=== PATIENT | female | born 1965 | race Caucasian/White ===

== ENCOUNTER → 2016-05-13 | Outpatient (CLI) | payer BC ==
--- NOTE | 2016-05-18 08:31 | MM ---
Reason for exam: clinical finding. Indicated problem(s): lump or thickening in the left breast. Physical Findings: Nurse Summary: 2 x 2cm nodule in the left breast upper outer quadrant (nurse ts). MG 3D Diag Mammo W/Cad JACLYN Bilateral CC and MLO view(s) were taken. No prior studies available for comparison. Finding: There is suspicious architectural distortion in the 1 o'clock upper outer quadrant of the left breast, 9cm from the nipple. These results were verbally communicated with the patient and result sheet given to the patient on 05/13/16. ASSESSMENT: Highly suggestive of malignancy, BI-RAD 5 RECOMMENDATION: Surgical consultation and ultrasound core biopsy of the left breast. Called Dr. Meyer with mammographic findings and has scheduled an appointment for the patient for 05/19/16 at 3:[address] Todd. PRELIMINARY REPORT CALLED AND FAXED TO DR. TODD ON 05/18/16 AT 300/TP.
--- NOTE | 2016-05-18 08:34 | USB ---
Reason for exam: clinical finding. Indicated problem(s): lump or thickening in the left breast. US Breast Limited LT Left breast ultrasound demonstrates a 1.1 x 1.1 x 0.7cm oval, cystic lesion at the posterior nipple, a 0.6 x 0.6 x 0.2cm oval, cystic lesion at 11 o'clock, a 0.6 x 0.6 x 0.3cm oval, cystic lesion at 1 o'clock, a 1.0 x 0.6 x 0.3cm irregular, solid, hypoechoic lesion at 1 o'clock and a 0.7 x 0.7 x 0.6cm irregular, cystic lesion at 1 o'clock. These results were verbally communicated with the patient and result sheet given to the patient on 05/13/16. ASSESSMENT: Highly suggestive of malignancy, BI-RAD 5 RECOMMENDATION: Surgical consultation and ultrasound core biopsy of the left breast. (10 o'clock left breast) Called Dr. Meyer with mammographic findings and has scheduled an appointment for the patient for 05/19/16 at 3:[address] Todd. PRELIMINARY REPORT CALLED AND FAXED TO DR. TODD ON 05/18/16 AT 300/TP.
== END | disposition home or self-care (01) ==
LOC: RADMAMWWP 15:34
PROVIDERS: ATTEND Family Medicine
DX: R92.2 Inconclusive mammogram (principal); R92.8 Other abnormal and inconclusive findings on diagnostic imaging of breast
CPT/HCPCS: 76642; G0204; G0279

== ENCOUNTER → 2016-05-22 | Day surgery (SDC) | payer BC ==
[~2016-05-22] MED LIST: ALPRAZolam 0.25 MG TAB ONE; BACITRACIN OINT 1 EACH PACKET TOPICAL ONE; LIDOCAINE 1% INJ 10MG/ML (20 ML MDV) ONE; LIDOCAINE 1%-EPI 1:100,000 20 ML VIAL ONE; SODIUM BICARB 4% 5 ML VIAL (0.48 MEQ/ML) ONE
--- NOTE | 2016-05-22 09:07 | USB ---
EXAMINATION TYPE: US biopsy breast VAD LT, MG diagnostic mammo LT wo CAD DATE OF EXAM: 05/22/2016 8:46 AM CLINICAL HISTORY: 50-year-old female R92.8 Abnormal Mammogram. TECHNIQUE: Ultrasound guided core biopsy of the left breast, 1:00 COMPARISON: 05/13/2016 FINDINGS: The procedure of ultrasound guided core biopsy was explained to the patient. Benefits, alternatives, and risks were discussed. An informed consent was then obtained. Rescanning the biopsy target at the 1:00 position suggests that the area may be larger than initially measured. Current measurements are estimated at 2.4 x 0.9 x 1.1 cm. There is vertical orientation, angular margins, and echogenic halo all of which are suspicious features. The patient was placed in supine positioning for imaging and for the procedure. The overlying skin was prepped and draped in usual sterile fashion. Lidocaine buffered with bicarbonate was used as anesthetic into the skin and subcutaneous tissue up to area of concern in the 1:00 left breast. The deeper anesthesia in and around the biopsy target with a lidocaine and epinephrine. Under ultrasound guidance, a a 13-gauge vacuum-assisted mammotome Elite biopsy gun was used to obtain 5 core samples. Following this, a coil clip was left in lesion. The patient tolerated the procedure well without any immediate complication. The patient was kept in the radiology department for short stay after the procedure and then discharged home in stable condition. Postprocedure mammogram shows biopsy clip at the site of architectural distortion. IMPRESSION: Successful, uncomplicated ultrasound guided core biopsy of very suspicious 1:00 left breast lesion; full pathology results to follow. 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 Recommendation Surgical consult of the left breast. NAREN
== END ==
LOC: RADUSWWP 06:50
PROVIDERS: ATTEND Surgery
DX: D05.12 Intraductal carcinoma in situ of left breast (principal); R92.8 Other abnormal and inconclusive findings on diagnostic imaging of breast
CPT/HCPCS: 88305; 19083; G0206; A4648; J2001

== ENCOUNTER 2016-07-08 07:15 | Observation (INO) | payer BC ==
[~2016-07-08 07:15] MED LIST changes: -ALPRAZolam 0.25 MG TAB ONE; -BACITRACIN OINT 1 EACH PACKET TOPICAL ONE; +DEXAMETHASONE SOD PHOSPHATE 10 MG/ML 1 ML VIAL IV ONE; +HEPARIN SODIUM,PORCINE 5,000 UNIT/ML 1 ML VIAL SQ ONE; -LIDOCAINE 1% INJ 10MG/ML (20 ML MDV) ONE; -LIDOCAINE 1%-EPI 1:100,000 20 ML VIAL ONE; +MIDAZOLAM 2 MG/2 ML VIAL IV PRN; +ONDANSETRON 4 MG/2 ML VIAL IVP ONE; +Pre Op ABX Message 1 EACH MISC MISCELLANE ONE; -SODIUM BICARB 4% 5 ML VIAL (0.48 MEQ/ML) ONE
[2016-07-08] MEDS ORDERED: ALPRAZolam 0.25 MG TAB PO ONE (07:58)
[2016-07-08] MEDS ORDERED: LIDOCAINE 1% 20 ML VIAL (10MG/ML) FOR IV START INTRADERMA ONE (08:15)
[2016-07-08] MEDS: LACTATED RINGERS 1,000 ML IV SCH (08:15)
[2016-07-08] MEDS ORDERED: LIDOCAINE 1% INJ 10MG/ML (20 ML MDV) SQ ONE (08:50)
--- NOTE | 2016-07-08 10:08 | NM ---
EXAMINATION TYPE: NM sentinel node injection DATE OF EXAM: 07/08/2016 9:51 AM COMPARISON: NONE HISTORY: Left breast cancer TECHNIQUE AND FINDINGS: The procedure of sentinel lymph node injection was explained to the patient. The benefits, alternatives, and risks were discussed. An informed consent was then obtained. Overlying skin is cleaned with sterile alcohol. Lidocaine buffered with bicarbonate was used as anes thetic into the skin and subcutaneous tissue surrounding the nipple. Following this, 545 uCi Tc 99m Filtered Sulfur Colloid was injected into 4 equivalent doses at 12, 3, 6, and 9:00 position surroundi ng the left nipple intradermally. The injection sites were massaged by nuclear instructor for 10 minutes after injection. T he patient tolerated the procedure well without any immediate complication. The patient was kept in the radiology department for short stay after the procedure and then taken to surgery for surgical pr ocedure what is presumed intraoperative gamma probe will be used for sentinel lymph node detection. IMPRESSION: Left breast radiotracer injection for sentinel node localization as above.
[2016-07-08] MEDS ORDERED: METHYLENE BLUE 50 MG/10 ML AMPUL MISCELLANE ONE (10:18)
[2016-07-08] MEDS ORDERED: ePHEDrine 50 MG/ML 1 ML AMP ONE (11:07)
[2016-07-08] MEDS ORDERED: SUCCINYLCHOLINE CHLORIDE 100 MG/5 ML SYR IV ONE (11:07)
[2016-07-08] MEDS ORDERED: LIDOCAINE 1% INJ 10MG/ML (20 ML MDV) ONE (11:07)
[2016-07-08] MEDS ORDERED: PROPOFOL 10 MG/ML 20 ML VIAL IV ONE (11:07)
[2016-07-08] MEDS ORDERED: MIDAZOLAM 2 MG/2 ML VIAL ONE (11:07)
[2016-07-08] MEDS ORDERED: fentaNYL (PF) 50 MCG/ML 2 ML AMP ONE (11:07)
[2016-07-08] MEDS ORDERED: SODIUM CHLORIDE 0.9% 100 ML with CLINDAMYCIN 600 MG IV ONE ×2 (11:30)
[2016-07-08] MEDS ORDERED: METHYLENE BLUE 50 MG/10 ML AMPUL INJ ONE (11:45)
[2016-07-08] MEDS ORDERED: LACTATED RINGERS 1,000 ML IV ONE ×3 (11:45→17:20)
[2016-07-08] MEDS ORDERED: BUPIVACAIN-EPI 0.25%-1:200,000 30 ML VIAL SQ ONE ×2 (11:57)
--- NOTE | 2016-07-08 13:28 | MM ---
EXAMINATION TYPE: MG pre op needle loc LT DATE OF EXAM: 07/08/2016 10:09 AM COMPARISON: 05/22/2016 CLINICAL HISTORY: Left breast cancer TECHNIQUE: Needle localization with wire placement and surgical excision of area of concern in the left breast. FINDINGS: The procedure of needle localization with wire placement and than surgical excision was explained to the patient. Benefits, alternatives, and risks were discussed. An informed consent was then obtained. The shortest pathway for procedure was chosen. Shortest pathway was chosen. The overlying skin was prepped and draped in usual sterile fashion. Lidocaine buffered with bicarbonate was used as anesthetic into the skin and subcutaneous tissue up to the level of area of concern. A 7 cm needle was used. It was placed via a lateral approach under mammographic guidance. Subsequent 90 degrees mammogram show the needle to be in satisfactory position relative to the targeted area. At this point, wire was placed and the needle was withdrawn. The wire was fixed to patient's skin. Images were marked for surgeon. The area of concern was bracketed with 2 needle localizations. The patient tolerated the procedure well without any immediate complication. The patient was kept in the radiology department for short stay after the procedure and then taken to surgery for surgical excision. Targeted area of concern and wire are identified in specimen mammogram. The patient was kept in hospital for short stay after the procedure and then discharged home in stable condition. IMPRESSION: Successful, uncomplicated needle localization with wire placement and surgical excision of area of concern in the left breast, full pathology results to follow. Pathology Results: Malignant A. LYMPH NODE, LEFT, SENTINEL NODE BIOPSY: LYMPH NODE POSITIVE FOR METASTASIS. B. LYMPH NODES, LEFT AXILLA, AXILLARY DISSECTION: ONE OF EIGHT LYMPH NODES WITH MICROMETASTASIS. C. 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 LOBULAR NEOPLASIA (ATYPICAL LOBULAR HYPERPLASIA/LOBULAR CARCINOMA IN SITU). FIBROCYSTIC CHANGE (STROMAL FIBROSIS, CYST FORMATION, APOCRINE METAPLASIA, ADENOSIS, FEATURES OF DUCT ECTASIA AND DUCT HYPERPLASIA FOCALLY WITH ATYPIA). FIBROADENOMAS. PSEUDOANGIOMATOUS STROMAL HYPERPLASIA (PASH). Recommendation Surgical consult of the left breast. NAREN
[2016-07-08] MEDS ORDERED: HYDROmorphone 1 MG/ML 1 ML SYRINGE IVP PRN (15:36)
[2016-07-08] MEDS ORDERED: ONDANSETRON 4 MG/2 ML VIAL IVP PRN (15:37)
[2016-07-08 15:55] VITALS: RESP 16
[2016-07-08] MEDS ORDERED: ONDANSETRON 4 MG/2 ML VIAL IVP ONE (16:04)
[2016-07-08] MEDS: HYDROmorphone 1 MG/ML 1 ML SYRINGE IVP PRN ×2 (16:12→16:31)
--- NOTE | 2016-07-08 16:52 | P.OP ---
Date of Procedure: 07/08/16 Preoperative Diagnosis: Left breast cancer- Invasive ductalcancer and DCIS upper outer quadrant at 1 o clock, ER+, DC+, Her 2 lana negative BRCA gene testing negative Postoperative Diagnosis: Same Procedure(s) Performed: Left breast wire localization lumpectomy( using 2 localization wires to bracket the lesion) Left sentinel lymph node biopsy using blue dye and radioactive tracer Left axillary lymph node dissection ( Level1 and 2) Implantation of biosorb marker left breast Implants: Biosorb Anesthesia: BRANDOA, local Surgeon: Kalyn Todd Ceramist #1: Shereen Barillas Estimated Blood Loss (ml): 25 Pathology: other Condition: stable Disposition: PACU Indications for Procedure: 50 years old female presents with left breast cancer in upper outer quadrant. Biopsy showed DCIS as well as invasive cancer, ER positive, DC positive, HER-2/ lana negative. BRCA genetic testing was negative. Informed consent obtained and patient elected to undergo left breast lumpectomy with wire localization with sentinel lymph node biopsy with possible axillary lymph node dissection. The risks, benefits and potential complications including bleeding, infection, lymphedema, positive margins requiring reexcision were discussed. Patient elected to undergo the procedure Operative Findings: 1. The left breast was dense. The palpable mass was bracketed using 2 localization wires 2. The gamma probe detected radioisotope signal/hot spot in the left axilla. The blue sentinel lymph node was identified in the axilla. The sentinel lymph node was positive for malignancy and hence proceeded with axillary lymph node dissection 3. The defect in the breast was closed utilising local tissue transfer technique and a BIOSORB marker was placed Description of Procedure: The patient underwent wire localization (bracketing) of left breast abnormality at 1 o'clock position . Injection of radioisotope was performed in the radiology department. She was brought to the operating room and placed in supine position with both arms out. 6 mL of methylene blue was injected in the subdermal plane at 4 quadrants around the areola and the breast was massaged for 5 minutes . General anesthesia with endotracheal intubation was performed as per anesthesia team. No muscle relaxants were given. Chlorhexidine was used to prep the left breast and left axilla taking care not to dislodge the wires exiting from the left breast. Sterile drapes were applied. A timeout was performed to verify correct patient and correct procedure. Patient was confirmed to receive perioperative IV antibiotics, heparin 5000 units subcutaneous injection for the VTE prophylaxis and bilateral SCDs were placed. A hand-held gamma probe was used to detect signals overlying the breast. Radioisotope signal could be obtained in the axilla at inferior hairline. A 3 cm incision was made below the left axillary hairline and dissection was carried out to identify blue node. The sentinel lymph node was sent for frozen section and was noted to be positive. Hence proceeded with left axillary lymph node dissection. After entering the clavicopectoral fascia, a additional blue node was identified. This node was located deep in the axillary bed. The node was excised in its entirety.All the firofatty axillary contents were removed extending to subclavian vein superiorly, pectoralis major muscle anteriorly , latissmus dorsi muscle posteriorly. Long thoracic nerve and thoracodorsal nerves identified and protected at all times. All left axilla contents sent for pathology. A flat ROBIN drain was left in the axilla and was brought out through a separate stab incision . The resulting cavity was checked for hemostasis. This was closed in layers using 3-0 Vicryl interrupted sutures and 4-0 Monocryl running subcuticular sutures. A 4 cm elliptical skin incision was made in between the two guidewire along the left breast. Superior and inferior skin flaps raised. The wires was delivered into the wound. Dissection was then taken down circumferentially using Bovie electrocautery taking care to include the entire area between the two localizing wires and a 1 cm margin of grossly normal tissue extending deep to the pectoralis muscle fascia. Final post excision measurement of the defect 10 x3.5 x 7 cm . 91 gms of breast tissue removed. The specimen and the localizing wires were removed. Specimen was oriented with colored ink as per protocol . The specimen was sent to radiology which confirmed that the wires and clip were within the excised specimen. Local tissue transfer technique utilized i.e. the remaining of the breast tissue was mobilized in prepectoral plane and subcuticular plane to close the large defect . The cavity was checked for hemostasis. A biosorb was sutured to the cavity using 2-0 Vicryl after measuring using the appropriate sizer . A small round drain was left in the lumpectomy cavity. The cavity was then closed in layers using 3-0 running Quill and 4-0 running Monocryl subcuticular sutures. Dermabond was applied. Sponge, instrument and needle count were correct 2. ROBIN drains were connected to bulb suction. Patient tolerated the procedure well and was taken to postanesthesia care unit in stable condition Final Pathologic Diagnosis A. LYMPH NODE, LEFT, SENTINEL NODE BIOPSY: LYMPH NODE POSITIVE FOR METASTASIS. B. LYMPH NODES, LEFT AXILLA, AXILLARY DISSECTION: ONE OF EIGHT LYMPH NODES WITH MICROMETASTASIS. C. 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 LOBULAR NEOPLASIA (ATYPICAL LOBULAR HYPERPLASIA/LOBULAR CARCINOMA IN SITU). FIBROCYSTIC CHANGE (STROMAL FIBROSIS, CYST FORMATION, APOCRINE METAPLASIA, ADENOSIS, FEATURES OF DUCT ECTASIA AND DUCT HYPERPLASIA FOCALLY WITH ATYPIA). FIBROADENOMAS. PSEUDOANGIOMATOUS STROMAL HYPERPLASIA (PASH). Notes SURGICAL PATHOLOGY CANCER CASE SUMMARY - INVASIVE CARCINOMA OF THE BREAST Specimen Identification Procedure: Excision with image guided localization. Lymph Node Sampling: [place] lymph node and axillary resection. Specimen Laterality: Left. Tumor Size - Size of Largest Invasive Carcinoma: Greatest dimension of largest focus of invasion greater than 1 mm: 21-26 mm, see comment. Histologic Type of Invasive Carcinoma: Invasive mammary carcinoma of no special type (ductal), not otherwise specified. Histologic Grade: [place] Histologic Score Glandular (Acinar)/Tubular Differentiation: 3. Nuclear Pleomorphism: 3. Mitotic Rate: 1. Overall Grade: Grade 2 (score of 7). Tumor Focality: Multiple foci of invasive carcinoma favor at least five foci of invasive carcinoma. Ductal Carcinoma In Situ (DCIS): DCIS is present. Nuclear Grade: III (high). Necrosis: Present, central (expansive "comedo" necrosis). Margins: Invasive carcinoma: Margins uninvolved by invasive carcinoma. Distance from closest margin: Less than 1 mm from the margin inked with black and green ink and less than 1 mm from the margin inked with black ink. See gross description. DCIS: Margins uninvolved by DCIS. Distance from closest margin: Less than 1.5 mm from the margin inked orange, less than 2 mm from the margin inked black, 2 mm from the margin inked yellow and just greater than 2 mm from the margin inked green and black. DCIS is also identified 1 mm from an edge inked green though this may not be the true margin and instead the inner edge of the grossly described invagination of the surface/ the inner aspect of the flap of breast. A duct with atypical ductal hyperplasia is present within 1 mm from the black inked margin. See gross description. Lymph Nodes Total number of nodes examined (sentinel and nonsentinel): 9. Number of sentinel nodes examined: 1. Lymph node involvement Number of lymph nodes with macrometastases (>2mm): 1. Number of lymph nodes with micrometastases (>0.2 mm to 2 mm and/or >200 cells): 1. Number of lymph nodes with isolated tumor cells (less than or equal to 0.2 mm and less than or equal to 200 cells): 0. Size of largest metastatic deposit: 15 mm. Extranodal Extension: Present. Lymph Vascular Invasion: Identified. Pathologic Staging TNM Descriptors: m (multiple foci of invasive carcinoma). Primary Tumor: pT2 (tumor greater than 20 mm but less than or equal to 50 mm in greatest dimension). Regional Lymph Nodes: pN1a (metastasis in 1-3 axillary lymph nodes, at least one metastasis greater than 2 mm).
[2016-07-08] MEDS ORDERED: SODIUM CHLORIDE 0.9% 1,000 ML IV SCH (18:15)
[2016-07-08 18:24] VITALS: BMI 27.7
[2016-07-08] MEDS: HEPARIN SODIUM,PORCINE 5,000 UNIT/ML 1 ML VIAL SQ SCH ×2 (18:39→23:37)
[2016-07-08] MEDS: HYDROcodone/APAP 5-325MG 1 EACH TAB PO PRN (19:41)
[2016-07-08] MEDS ORDERED: SCOPOLAMINE 1.5MG/72HR PATCH TRANSDERM SCH (20:00)
[2016-07-08] MEDS ORDERED: ZOLPIDEM 5 MG TAB PO SCH (21:00)
[2016-07-08] MEDS: DOCUSATE 100 MG CAP PO SCH (23:34)
[2016-07-09] MEDS: LACTATED RINGERS 1,000 ML IV SCH (04:31)
[2016-07-09] MEDS: HYDROcodone/APAP 5-325MG 1 EACH TAB PO PRN (07:22)
[2016-07-09] MEDS: HEPARIN SODIUM,PORCINE 5,000 UNIT/ML 1 ML VIAL SQ SCH (07:23)
[2016-07-09] MEDS: DOCUSATE 100 MG CAP PO SCH (07:24)
--- NOTE | 2016-07-09 11:36 | P.DS ---
Providers Date of admission: 07/08/16 19:41 Expected date of discharge: 07/09/16 Attending physician: Kalyn Todd Primary care physician: [facility] Course: 50-year-old female who was admitted to undergo a lumpectomy for left breast cancer on the 08 of July. The sentinel lymph node was negative for malignancy. Patient was worked up by mammogram and ultrasound for dense area noted at 1 o'clock position left breast. Patient elected to proceed with a surgical approach patient underwent a the left breast lumpectomy on July [address] todd postop patient stated to surgical pain was controlled patient had 2 Sravan-Post drains in place. Dressing was dry to the left breast area Impression discharge diagnosis Abnormal mammogram for dense area left breast July 08 lumpectomy left breast with sentinel lymph node negative for malignancy The above dictated assessment and findings were discussed with dr todd Impression and the plan of care have been dictated as directed. Xenia Lerner nurse practitioner acting as a scribe for dr todd Plan - Discharge Summary New Discharge Prescriptions: Docusate [Colace] 100 mg PO BID #30 capsule HYDROcodone/APAP 7.5-325MG [[place] 7.5-325] 1 each PO Q4H PRN #30 tab PRN Reason: Pain Discharge Medication List Cholecalciferol [Vitamin D3] 1,000 unit PO DAILY 07/02/16 [History] Ibuprofen [Motrin] 200 mg PO Q6HR PRN 07/02/16 [History] Magnesium Gluconate [Magonate] 500 mg PO DAILY 07/02/16 [History] Docusate [Colace] 100 mg PO BID #30 capsule 07/08/16 [Rx] HYDROcodone/APAP 7.5-325MG [[place] 7.5-325] 1 each PO Q4H PRN #30 tab 07/08/16 [ Rx] Follow up Appointment(s)/Referral(s): Kalyn Todd MD [STAFF PHYSICIAN] - 07/14/16 9:40 am Activity/Diet/Wound Care/Special Instructions: OK to shower . No soaking bath. No heavy lifting more than 10 lbs for 6 weeks post surgery. No driving while taking narcotics for pain. Take Motrin 600 mg po TID after meals if pain is not controlled Use incentive spireometry 10 times an hour while awake Regular diet Empty ROBIN drain every 12 hours and record output Discharge Disposition: HOME SELF-CARE
[2016-07-09 15:06] VITALS: BP 114/71; PULSE 80; TEMP 97.8
== END 2016-07-09 18:05 | disposition home or self-care (01) ==
LOC: OR 07:15 → 3SUR 15:08 → OR 19:40 → 3SUR 19:41
PROVIDERS: ADMIT Surgery; ATTEND Surgery
DX: C50.412 Malignant neoplasm of upper-outer quadrant of left female breast (principal); C77.3 Secondary and unspecified malignant neoplasm of axilla and upper limb lymph nodes; Z88.0 Allergy status to penicillin; Z87.891 Personal history of nicotine dependence; G43.909 Migraine, unspecified, not intractable, without status migrainosus; Z88.8 Allergy status to other drugs, medicaments and biological substances; Z79.1 Long term (current) use of non-steroidal anti-inflammatories (NSAID)
CPT/HCPCS: 19301; 38525; 96376; 96374; 96375; 81025; 88342; 88331; 88307; 76098; 19281; 38792; G0378 ×2; C1713; A9541; J2250; J1644 ×2; J1100; J2405; J2001; J3010; J1170; J0330; J2704; Q9968

== ENCOUNTER → 2016-10-01 | Outpatient (CLI) | payer BC ==
[2016-10-01 16:16] LABS: Basophils % (A) 1 %; CH 32.7; CHCM 36.1; Eosinophils # (A) 0.1 k/uL (0-0.7); Eosinophils % (A) 2 %; HCT 39.3 % (34.0-46.0); HDW 3.02; HGB 14.1 gm/dL (11.4-16.0); Luc # (Auto) 0.12; Luc % (Auto) 2; Lymphocytes % (A) 21 %; MCH 32.6 pg (25.0-35.0); MCHC 35.8 g/dL (31.0-37.0); MCV 91.1 fL (80.0-100.0); Mean Platelet Volume 7.2; Monocytes # (A) 0.4 k/uL (0-1.0); Monocytes % (A) 7 %; Neutrophils # (A) 3.4 k/uL (1.3-7.7); Neutrophils % (A) 68 %; RBC 4.31 m/uL (3.80-5.40); RDW 13.4 % (11.5-15.5); WBC (Perox) 5.55
[2016-10-01 16:30] LABS: ALT 32 U/L (9-52); AST 19 U/L (14-36); Alkaline Phosphatase 52 U/L (38-126); Anion Gap 7 mmol/L; Blood Urea Nitrogen 8 mg/dL (7-17); Calcium 9.3 mg/dL (8.4-10.2); Carbon Dioxide 29 mmol/L (22-30); Chloride 105 mmol/L (98-107); Glucose 91 mg/dL (74-99); Non-African American GFR(MDRD) >60 (>60 ml/min/1.73 sqM); Potassium 4.4 mmol/L (3.5-5.1); Sodium 141 mmol/L (137-145); Total Bilirubin 0.7 mg/dL (0.2-1.3); Total Protein 7.1 g/dL (6.3-8.2)
== END | disposition home or self-care (01) ==
LOC: LABWHC1 15:45
PROVIDERS: ATTEND Radiology Radiation Oncology
DX: C50.412 Malignant neoplasm of upper-outer quadrant of left female breast (principal); Z17.0 Estrogen receptor positive status [ER+]
CPT/HCPCS: 36415; 80053; 82306; 84443; 85025

== ENCOUNTER → 2017-05-14 | Outpatient (CLI) | payer BC ==
--- NOTE | 2017-05-14 11:16 | MM ---
Reason for exam: additional evaluation requested from prior study. Last mammogram was performed 1 year ago. History: Patient is postmenopausal and has history of breast cancer at age 50. Malignant MG pre op needle loc LT of the left breast, July 08, 2016. Lumpectomy of the left breast, July 08, 2016. Malignant US biopsy breast VAD LT of the left breast, May 22, 2016. Radiation therapy of the left breast, 2017. Physical Findings: Nurse did not find any significant physical abnormalities on exam. MG 3D Diag Mammo W/Cad JACLYN Bilateral CC and MLO view(s) were taken. Prior study comparison: May 22, 2016, left breast MG diagnostic mammo LT wo CAD. May 13, 2016, bilateral MG 3d diag mammo w/cad JACLYN. The breast tissue is heterogeneously dense. This may lower the sensitivity of mammography. Finding: There are new indeterminate cluster of microcalcifications in the right breast 7.5cm from the nipple for which a biopsy is recommended consistent with posterior group stable since 2010. These results were verbally communicated with the patient and result sheet given to the patient on 05/14/17. ASSESSMENT: Suspicious, BI-RAD 4 RECOMMENDATION: Stereotactic core biopsy of the right breast. Called Dr. Gonzalez with mammographic findings and has scheduled an appointment for the patient for 05/28/17 at 10:[address] Badillo. PRELIMINARY REPORT CALLED AND FAXED TO DR. BADILLO ON 05/14/17.
== END | disposition home or self-care (01) ==
LOC: RADMAMWWP 09:57
PROVIDERS: ATTEND Radiology Radiation Oncology
DX: Z08 Encounter for follow-up examination after completed treatment for malignant neoplasm (principal); Z85.3 Personal history of malignant neoplasm of breast
CPT/HCPCS: 77066; G0279

== ENCOUNTER → 2017-06-01 | Outpatient (CLI) | payer BC ==
--- NOTE | 2017-06-02 17:59 | BD ---
EXAMINATION TYPE: MG DEXA axial skeleton. DATE OF EXAM: 06/01/2017 COMPARISON: NONE CLINICAL HISTORY: post menopausal Height: 5'4 1/2 Weight: 147 FRAX RISK QUESTIONS: Alcohol (3 or more units per day): no Family History (Parent hip fracture): no Glucocorticoids (More than 3mos): no (Ex: prednisone, prednisolone, methylprednisolone, dexamethasone, and hydrocortisone). History of Fracture in Adulthood: no Secondary Osteoporosis: 1. Type 1 Diabetes: no 2. Hyperthyroidism: no 3. Menopause before 45: no 4. Malnutrition: no 5. Chronic liver disease: no Rheumatoid Arthritis: no Current Tobacco Use: no RISK FACTORS HISTORY OF: If Premenopausal, do you have irregular periods: y MEDICATIONS: Additional Medications: tamoxifen, breast cancer 2017 ,crestor, Additional History: breast cancer 2017 EXAM MEASUREMENTS: Bone mineral densitometry was performed using the [employer] System. Bone mineral density as measured about the Lumbar spine is: ----- L1-L4(G/cm2): 1.232 T Score Values are as follows: ----- L2: -0.2 ----- L3: 1.2 ----- L4: 0.4 ----- L1-L4: 0.4 Bone mineral density about the R hip (g/cm2): 0.963 Bone mineral density about the L hip (g/cm2): 1.038 T Score values are as follows: -----R Neck: -0.5 -----L Neck: 0.0 -----R Total: -0.1 -----L Total: -0.1 IMPRESSION: Normal (Values between +1 and -1 indicate normal bone mass). Consider repeating this study in 5 year s or sooner if there is some new clinical indication. NOTE: T-SCORE=SD OF THE YOUNG ADULT MEAN.
== END | disposition home or self-care (01) ==
LOC: RADBDWWP 15:56
PROVIDERS: ATTEND Obstetrics & Gynecology
DX: Z78.0 Asymptomatic menopausal state (principal); Z13.820 Encounter for screening for osteoporosis
CPT/HCPCS: 77080

== ENCOUNTER → 2017-06-10 | Day surgery (SDC) | payer BC ==
[2017-06-10 07:27] VITALS: RESP 16; TEMP 97.8; BMI 25.7
[2017-06-10 08:36] VITALS: BP 111/68; PULSE 71
--- NOTE | 2017-06-10 09:17 | MM ---
EXAMINATION TYPE: MG stereo VAD BX RT DATE OF EXAM: 06/10/2017 COMPARISON: Exams dating back to 09/23/2011 CLINICAL HISTORY: New 3 mm group of calcifications within the upper central right breast for which dedicated guided biopsy was recommended. TECHNIQUE: Stereotactic guided core biopsy of right breast. FINDINGS: The procedure of stereotactic guided core biopsy was explained to the patient. Benefits, alternatives, and risks were discussed. An informed consent was then obtained. Preprocedural timeout was performed. The shortness pathway for biopsy was chosen. Shortness pathway was craniocaudal from above approach. Preprocedural localization images were obtained and a 3 mm group of calcifications within the upper central right breast was demonstrated. Coordinates were calculated. Subsequently 10 cc of lidocaine without epinephrine was utilized to anesthetize the skin and deeper subcutaneous soft tissues. The needle was advanced to the appropriate depth. Prefire images were obtained ensuring appropriate location. Postfire injection of 10 cc of lidocaine with epinephrine was utilized to anesthetize the site of biopsy. Postfire images were obtained to ensure no movement of the calcifications after instillation of additional anesthetic. A vacuum assisted biopsy gun was used to obtain 9 core samples. The patient tolerated the procedure well without any immediate complication. The patient was kept in the radiology department for short stay after the procedure and then discharged home in stable condition. Targeted calcifications are identified in specimen mammogram. Post biopsy mammogram shows the T-shaped biopsy marker to appear in satisfactory position relative to the targeted area of concern on the preprocedure images without migration. IMPRESSION: SUCCESSFUL, UNCOMPLICATED STEREOTACTIC GUIDED CORE BIOPSY OF A NEW INTERMEDIATE SUSPICION A 3 MM GROUP OF CALCULATIONS WITHIN THE UPPER CENTRAL RIGHT BREAST, FULL PATHOLOGY RESULTS TO FOLLOW. Pathology Results: Benign CORE BIOPSY, RIGHT BREAST TISSUE: CYSTIC NON-PROLIFERATIVE CHANGES: DUCT ECTASIA AND LOBULAR DILATION WITH STROMAL HYLANIZATION. MICROCALCIFICATIONS ARE PRESENT. Recommendation Follow up mammogram of the right breast in 6 months. NAREN
== END ==
LOC: RADMAMWWP 06:56
PROVIDERS: ATTEND Surgery
DX: N60.11 Diffuse cystic mastopathy of right breast (principal); N60.41 Mammary duct ectasia of right breast; R92.0 Mammographic microcalcification found on diagnostic imaging of breast; Z85.3 Personal history of malignant neoplasm of breast
CPT/HCPCS: 88305; 19081; A4648; J2001

== ENCOUNTER → 2017-06-16 | Outpatient (CLI) | payer BC ==
--- NOTE | 2017-06-16 15:35 | CT ---
EXAMINATION TYPE: CT sinus wo con DATE OF EXAM: 06/16/2017 COMPARISON: NONE HISTORY: Sinus trouble CT DLP: 667.[address] of the paranasal sinuses was performed in the axial and coronal planes. Bone and soft tissue settings are submitted. The paranasal sinuses demonstrate normal aeration and development. Very mild mucosal thickening at the base of the right maxillary sinus. No air-fluid levels detected. The osteal meatal units are patent bilaterally. The nasal septum is midline. No bony destructive changes are seen within the field of view. IMPRESSION: Mild mucosal thickening right maxillary sinus.
== END | disposition home or self-care (01) ==
LOC: RADCTMAIN 14:58
PROVIDERS: ATTEND Family Medicine
DX: J34.89 Other specified disorders of nose and nasal sinuses (principal); J32.9 Chronic sinusitis, unspecified
CPT/HCPCS: 70486

== ENCOUNTER → 2017-06-16 | Outpatient (CLI) | payer BC ==
--- NOTE | 2017-06-16 15:38 | CT ---
EXAMINATION TYPE: CT chest w con DATE OF EXAM: 06/16/2017 COMPARISON: NONE HISTORY: Chest pains CT DLP: 150.9 mGycm Automated exposure control for dose reduction was used. CONTRAST: CT scan of the chest is performed with IV Contrast, patient injected with 100 mL of Isovue 300. FINDINGS: LUNGS: Small subpleural nodular density measuring 4 mm right lower lobe image 41. No additional pulmo nary nodular densities seen. No evidence for focal infiltrate or volume loss. Mild subpleural interst itial changes left upper lobe likely post radiation therapy related. There is no pleural effusion or pneumothorax seen. The tracheobronchial tree is patent. MEDIASTINUM: There are no greater than 1 cm hilar or mediastinal lymph nodes. No pericardial effusi on is seen. Thoracic aorta is of normal caliber. The heart is not enlarged. UPPER ABDOMEN: Mild hepatic steatosis. Bilateral extrarenal pelves. OTHER: Lumpectomy changes left breast with associated skin thickening. IMPRESSION: 1. Lumpectomy changes left breast. 2. Mild post radiation therapy changes left upper lobe. 3. Small nonspecific subpleural pulmonary nodule right lower lobe. Consider follow-up study in 6 [facility] hs.
== END | disposition home or self-care (01) ==
LOC: RADCTMAIN 15:00
PROVIDERS: ATTEND Internal Medicine Hematology & Oncology
DX: C50.419 Malignant neoplasm of upper-outer quadrant of unspecified female breast (principal); R91.1 Solitary pulmonary nodule; Z90.12 Acquired absence of left breast and nipple; Z92.3 Personal history of irradiation; Z88.0 Allergy status to penicillin
CPT/HCPCS: 71260; Q9967

== ENCOUNTER → 2017-06-25 | Outpatient (CLI) | payer BC ==
[2017-06-25 11:36] VITALS: BP 110/53; PULSE 63; TEMP 97; BMI 24.4
--- NOTE | 2017-06-25 12:02 | P.GSHP ---
History of Present Illness H&P Date: 06/25/17 Patient is a 51 year old whtie female status post a right breast stero-biopsy on 06/10/17. Her pathology was benign, cystic non-proliferative changes, duct ectasia, and lobular diliation with stromal hylanization. Microcalcification were present. Her bilateral mammogram was on 05/14/17. Nothing of concern noted in the left breast. Patient scheduled for a D&C in the near future for a thick walled uterus. Patient is status post left breast lumpectomy and radiation 2016. No chemotherapy, she is on tamoxiphen. Patient without complaints. No fever or chills. - Constitutional Comment: no night sweats with the tamoxiphen Constitutional: Denies chills, Denies fever - Cardiovascular Cardiovascular: Denies chest pain, Denies shortness of breath - Respiratory Respiratory: Denies cough, Denies 7 - Gastrointestinal Gastrointestinal: Denies abdominal pain, Denies diarrhea, Denies nausea, Denies vomiting - Musculoskeletal Musculoskeletal: Denies myalgias - Integumentary Integumentary: Denies pruritus, Denies rash - Neurological Neurological: Denies numbness, Denies weakness - Psychiatric Psychiatric: Denies anxiety, Denies depression - Endocrine Endocrine: Denies fatigue, Denies weight change - Hematologic/Lymphatic Comment: no blood thinners Past Medical History Past Medical History: Cancer Additional Past Medical History / Comment(s): migraines, breast cancer 2017 History of Any Multi-Drug Resistant Organisms: None Reported Past Surgical History: Tubal Ligation Additional Past Surgical History / Comment(s): left breast biopsy, cyst removed from ovary, surgery on left thumb Past Anesthesia/Blood Transfusion Reactions: No Reported Reaction Smoking Status: Former smoker - Past Family History Mother Family Medical History: Diabetes Mellitus Brother(s) Family Medical History: Diabetes Mellitus Medications and Allergies Home Medications Medication Instructions Recorded Confirmed Type Cholecalciferol [Vitamin D3] 2,000 unit PO DAILY 07/02/16 06/25/17 History Rosuvastatin Calcium [Crestor] 5 mg PO DAILY 06/08/17 06/25/17 History Vitamin E (Dl,Tocopheryl Acet) 400 unit PO DAILY 06/08/17 06/25/17 History [Vitamin E] Tamoxifen [Nolvadex] 20 mg PO DAILY 06/10/17 06/25/17 History Multivitamins, Thera [Multivitamin 2 tab PO DAILY 06/25/17 06/25/17 History (formulary)] Allergies Allergy/AdvReac Type Severity Reaction Status Date / Time Penicillins Allergy Mild Rash/Hives Verified 06/10/17 07:18 Surgical - Exam Vital Signs Temp Pulse BP 97.0 F L 63 110/53 06/25/17 11:33 06/25/17 11:33 06/25/17 11:33 - General well developed, well nourished, no distress - Respiratory normal respiratory effort, clear to auscultation - Cardiovascular Rhythm: regular Heart Sounds: normal: S1, S2 - Abdomen Abdomen: soft, non tender, no guarding, no rigid, no rebound - Integumentary Biopsy site was clean and dry Left breast postoperative changes no masses of concern - Psychiatric oriented to time, oriented to person, oriented to place, speech is normal, memory intact Results Pathology reviewed with the patient Assessment and Plan Assessment: Gabriela/plan: 1. Patient status post stereo biopsy of the right breast pathology benign 2. History of left breast cancer Plan: 1. Repeat mammogram and appointment in 6 months time of the right breast cc: Dr Meyer
== END | disposition home or self-care (01) ==
LOC: WWCWWP 11:20
PROVIDERS: ATTEND Surgery
DX: N60.41 Mammary duct ectasia of right breast (principal); Z53.9 Procedure and treatment not carried out, unspecified reason

== ENCOUNTER → 2017-07-10 | Outpatient (CLI) | payer BC ==
[2017-07-10 10:32] LABS: Basophils % (A) 1 %; Eosinophils # (A) 0.1 k/uL (0-0.7); Eosinophils % (A) 2 %; HCT 38.6 % (34.0-46.0); HGB 13.7 gm/dL (11.4-16.0); Lymphocytes # (A) 1.4 k/uL (1.0-4.8); Lymphocytes % (A) 26 %; MCH 32.6 pg (25.0-35.0); MCHC 35.6 g/dL (31.0-37.0); MCV 91.7 fL (80.0-100.0); Monocytes # (A) 0.3 k/uL (0-1.0); Monocytes % (A) 6 %; Neutrophils # (A) 3.6 k/uL (1.3-7.7); Neutrophils % (A) 65 %; Platelet Count 215 k/uL (150-450); RBC 4.21 m/uL (3.80-5.40); RDW 13.9 % (11.5-15.5); WBC 5.5 k/uL (3.8-10.6)
== END | disposition home or self-care (01) ==
LOC: LABPAT 10:14
PROVIDERS: ATTEND Obstetrics & Gynecology
DX: Z01.812 Encounter for preprocedural laboratory examination (principal)
CPT/HCPCS: 85025

== ENCOUNTER 2017-07-16 05:58 | Day surgery (SDC) | payer BC ==
[2017-07-07 10:16] VITALS: BMI 24.1
--- NOTE | 2017-07-15 21:08 | P.HPOB ---
History of Present Illness H&P Date: 07/15/17 Chief Complaint: Endometrial thickening This is a 51 y.o. female, 2, para 2, who presents for dilatation and curettage with hysteroscopy due to thickened endometrium on pelvic US. She has a history of breast cancer and is on Tamoxifen. Her last menstrual period was October 2016. Her pelvic US showed uterus measuring 9.2 x 5.3 x 4.8 cm with endometrial thickness of 16 mm. Her left ovary showed 2.8 cm cyst. OB Hx: . 2 vaginal deliveries. 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 LMP 10/2016. Review of Systems Constitutional: Denies chills, Denies fever Eyes: denies blurred vision, denies pain Ears, nose, mouth and throat: Denies headache, Denies sore throat Cardiovascular: Denies chest pain, Denies shortness of breath Respiratory: Denies cough Gastrointestinal: Denies abdominal pain, Denies diarrhea, Denies nausea, Denies vomiting Genitourinary: Denies abnormal vaginal bleeding, Denies dysuria, Denies hematuria Menstruation: Reports postmenopausal Musculoskeletal: Denies myalgias Neurological: Denies numbness, Denies weakness Psychiatric: Denies anxiety, Denies depression Past Medical History Past Medical History: Cancer, Hyperlipidemia Additional Past Medical History / Comment(s): Hx migraines, left breast cancer 2016, last radiation treatment 09/2016. History of Any Multi-Drug Resistant Organisms: None Reported Past Surgical History: Breast Surgery (L. Breast lumpectomy), Tubal Ligation Additional Past Surgical History / Comment(s): left breast biopsy, Exploratory laparotomy withcyst removed from ovary, surgery on left thumb. Past Anesthesia/Blood Transfusion Reactions: No Reported Reaction Past Psychological History: No Psychological Hx Reported Smoking Status: Former smoker Past Alcohol Use History: Rare Additional Past Alcohol Use History / Comment(s): quit smoking 2008, smoked for 20 yrs - 1 PPD Past Drug Use History: None Reported - Past Family History Mother Family Medical History: Diabetes Mellitus Medications and Allergies Home Medications Medication Instructions Recorded Confirmed Type Rosuvastatin Calcium [Crestor] 5 mg PO Q48H 06/08/17 07/07/17 History Allergies Allergy/AdvReac Type Severity Reaction Status Date / Time Penicillins Allergy Mild Rash/Hives Verified 07/07/17 10:03 Exam Osteopathic Statement: *. No significant issues noted on an osteopathic structural exam other than those noted in the History and Physical/Consult. HEENT: within normal limits Heart: regular rate and rhythm Lungs: clear to auscultation bilaterally Abdomen: soft, non-tender Pelvic exam: uterus anteverted, mildly tender, with no adnexal masses. Bilateral adnexal tenderness. Extremities: neg. Andrés's. Assessment and Plan (1) Endometrial thickening on ultrasound Status: Acute Code(s): R93.8 - ABNORMAL FINDINGS ON DIAGNOSTIC IMAGING OF BODY STRUCTURES SNOMED Code(s): 681511253 Plan: Proceed with dilatation and curettage with hysteroscopy. I have discussed the risks, benefits, and alternative therapies for the above- mentioned procedure and for both sedation/anesthesia as well as necessary blood products administration, if indicated, as they pertain to this patient. The patient has indicated her understanding and acceptance of the risks and procedures discussed.
[~2017-07-16 05:58] MED LIST changes: -HEPARIN SODIUM,PORCINE 5,000 UNIT/ML 1 ML VIAL SQ ONE; +HYDROmorphone 0.5 MG/0.5 ML SYRINGE IVP PRN; +LACTATED RINGERS 1,000 ML IV SCH; +LIDOCAINE 1% 20 ML VIAL (10MG/ML) FOR IV START INTRADERMA PRN; +SCOPOLAMINE 1.5MG/72HR PATCH TRANSDERM ONE
[2017-07-16] MEDS ORDERED: PROPOFOL 10 MG/ML 20 ML VIAL IV ONE (07:22)
[2017-07-16] MEDS ORDERED: KETOROLAC 30 MG/ML 1 ML VIAL ONE (07:22)
[2017-07-16] MEDS ORDERED: GLYCOPYRROLATE 0.2 MG/ML 2 ML VIAL ONE (07:22)
[2017-07-16] MEDS ORDERED: fentaNYL (PF) 50 MCG/ML 2 ML AMP ONE (07:22)
[2017-07-16] MEDS ORDERED: MIDAZOLAM 2 MG/2 ML VIAL ONE (07:22)
[2017-07-16 08:10] VITALS: TEMP 97.6
[2017-07-16 08:52] VITALS: BP 103/70
[2017-07-16 09:13] VITALS: PULSE 62; RESP 16
--- NOTE | 2017-07-19 11:47 | P.OP ---
Date of Procedure: 07/16/17 Preoperative Diagnosis: Endometrial thickening Postoperative Diagnosis: Same Procedure(s) Performed: Dilation and curettage with hysteroscopy Anesthesia: other (LMA General) Surgeon: Radha Reinoso Estimated Blood Loss (ml): 10 Pathology: other (Endometrial curettings) Condition: stable Disposition: same day Indications for Procedure: This is a 51 y.o. female, 2, para 2, who presents for dilatation and curettage with hysteroscopy due to thickened endometrium on pelvic US. She has a history of breast cancer and is on Tamoxifen. Her last menstrual period was October 2016. Her pelvic US showed uterus measuring 9.2 x 5.3 x 4.8 cm with endometrial thickness of 16 mm. Her left ovary showed 2.8 cm cyst. Of note she did state that about a week ago she did have some vaginal bleeding. Operative Findings: Uterus anteverted, sounded to 8 cm. Upon hysteroscopy, both tubal ostia are visualized. Fairly atrophic pattern noted, sl. thickening on posterior border. No obvious polyps or fibroids. Description of Procedure: The patient was taken to the operating room and placed in the dorsal lithotomy position after general anesthesia was given. The bladder was drained with a catheter and then removed. Pelvic exam was performed under anesthesia. Uterus was found to be anteverted with no adnexal masses. A weighted speculum was placed in the vagina and the anterior lip of the cervix was grasped with a single toothed tenaculum. Uterus was sounded to 8 cm. Cervix was dilated with Post dilators until a hysteroscope could be passed. Hysteroscopy was performed using normal saline. The above noted findings were noted and pictures were taken. Hysteroscope was withdrawn and cervix was dilated further with Post dilators. A polyp forcep was introduced and scant tissue was obtained. Next a medium sized sharp curette was introduced and curettage was performed until a gritty texture was noted. A minimal to moderate amount of tissue was obtained. Single tooth tenaculum was removed and minimal bleeding noted. All other instruments are removed from the vagina. Sponge counts are correct and patient is taken to recovery room in stable condition.
== END 2017-07-16 09:43 | disposition home or self-care (01) ==
LOC: OR 05:58
PROVIDERS: ATTEND Obstetrics & Gynecology
DX: N85.8 Other specified noninflammatory disorders of uterus (principal); N83.202 Unspecified ovarian cyst, left side; Z88.0 Allergy status to penicillin; E78.5 Hyperlipidemia, unspecified; Z79.810 Long term (current) use of selective estrogen receptor modulators (SERMs); Z85.3 Personal history of malignant neoplasm of breast; Z79.899 Other long term (current) drug therapy; Z98.51 Tubal ligation status; Z87.891 Personal history of nicotine dependence; Z83.3 Family history of diabetes mellitus
CPT/HCPCS: 81025; 88305; 58558; J2250; J1100; J2405; J3010; J1885; J2704

== ENCOUNTER → 2017-12-30 | Outpatient (CLI) | payer BC ==
[2017-12-30 15:23] VITALS: BP 117/58; PULSE 66; RESP 16; TEMP 98.4; BMI 27.4
--- NOTE | 2017-12-30 15:44 | P.PN ---
Subjective Progress Note Date: 12/30/17 Principal diagnosis: Shelbie is a 52-year-old white female who is status post a right breast stereo biopsy on [id number]. Her pathology was benign. The patient is also status post a left breast lumpectomy and radiation therapy in 2016. She did not take chemotherapy. She is taking tamoxifen. The patient has no complaints at this time related to either breasts. She did have a repeat right breast mammogram on [id number]. This was a BIRADS 2 no lesions of concern were noted and she is recommended to have a bilateral mammogram in April 2018. Dr. Kramer did identify a spot on her lung and she is having a CAT scan performed next week. Past Surgical History: 1. lumpectomy left breast 2. Ovarian cyst removed on the left 3. Tubal ligation 4. Thumb surgery Past Medical History: none Objective - Vital Signs Vital signs: Vital Signs Temp 98.4 F 12/30/17 15:17 Pulse 66 12/30/17 15:17 Resp 16 12/30/17 15:17 BP 117/58 12/30/17 15:17 Pulse Ox 97 12/30/17 15:17 Intake & Output 12/29/17 12/30/17 12/30/17 18:59 06:59 18:59 Weight 72.575 kg - Constitutional General appearance: Present: average body habitus - EENT Eyes: Present: EOMI ENT: Present: hearing grossly normal - Neck Neck: Present: normal ROM - Respiratory Respiratory: bilateral: CTA - Cardiovascular Rhythm: regular Heart sounds: normal: S1, S2 - Gastrointestinal General gastrointestinal: Present: soft - Integumentary Integumentary Comment(s): breast exam: right breast: Multi-positional exam no dominant masses or nodules of concern Right axilla: No adenopathy of concern Left breast: Multi-positional exam well-healed scar from prior surgery no dominant masses or nodules of concern, changes from radiation present Left axilla: No adenopathy of concern - Musculoskeletal Musculoskeletal: Present: gait normal - Psychiatric Psychiatric: Present: A&O x's 3, appropriate affect, intact judgment & insight Assessment and Plan Assessment: Impression: 1. Right breast stereo biopsy approximately 6 months ago benign 2. Status post left breast lumpectomy and radiation therapy 3. No evidence of recurrent cancer, patient does have a nodule in her lung for which a CAT scan is been ordered by Dr. Kramer Plan: 1. Bilateral mammogram in physician exam in 6 months 2. Computed tomography scan of pulmonary nodule to be followed by Dr. Kramer CC: Dr. Meyer
== END | disposition home or self-care (01) ==
LOC: WWCWWP 15:06
PROVIDERS: ATTEND Surgery
DX: Z53.9 Procedure and treatment not carried out, unspecified reason (principal)

== ENCOUNTER → 2018-01-04 | Outpatient (CLI) | payer BC ==
--- NOTE | 2018-01-04 16:02 | CT ---
EXAMINATION TYPE: CT chest wo con DATE OF EXAM: 01/04/2018 COMPARISON: Prior chest CT June 16, 2017 HISTORY: f/u prior abnormal chest CT CT DLP: 470 mGycm. Automated Exposure Control for Dose Reduction was Utilized. TECHNIQUE: CT scan of the thorax is performed without IV contrast. FINDINGS: LUNGS: Mild biapical pleural/parenchymal scarring is redemonstrated bilaterally. There is slightly le ss prominent 2 to 3 mm subpleural nodule right lower lobe axial image 42. There is redemonstration of anterior left midlung subpleural reticulation near axial image 24, there is new tree-in-bud acute in filtrate in the medial inferior anterior aspect left upper lobe with mild peribronchial wall thickeni ng seen best near sagittal image 73 intra-axial image 21 abutting the minor fissure. Correlate for ac neo infection. No pleural effusion or pneumothorax is present bilaterally. MEDIASTINUM: Lack of IV contrast is noted to limit evaluation for mediastinal and especially hilar ad enopathy. There are no definitive greater than 1 cm hilar or mediastinal lymph nodes. No cardiomega ly or pericardial effusion is seen. OTHER: Excisional biopsy upper outer quadrant left breast axial image 19 is redemonstrated. Asymmetri c mild skin thickening left breast is again seen consistent with posttreatment change. Small splenule redemonstrated axial image 53. There is better visualization of bilateral collecting systems with mo derate bilateral pyelocaliectasis noted. IMPRESSION: 1. Right lower lobe subpleural pulmonary nodule is less prominent measuring 2 to 3 mm currently presu med benign. 2. New reticulonodular opacity anterior inferior medial left upper lobe could reflect acute infectiou s process versus posttreatment change, correlate clinically. History of left breast neoplasm noted. 3. Partial visualization of suspected mild to moderate bilateral hydronephrosis. Correlate clinically . Findings appear more prominent or new from IVP study in 2011. Consider further workup.
== END | disposition home or self-care (01) ==
LOC: RADCTMAIN 15:14
PROVIDERS: ATTEND Internal Medicine Hematology & Oncology
DX: C50.419 Malignant neoplasm of upper-outer quadrant of unspecified female breast (principal); Z88.0 Allergy status to penicillin; Z85.3 Personal history of malignant neoplasm of breast
CPT/HCPCS: 71250

== ENCOUNTER → 2018-02-17 | Outpatient (CLI) | payer BC ==
[2018-02-17 15:18] LABS: Blood Urea Nitrogen 21 mg/dL (7-17)
--- NOTE | 2018-02-18 09:28 | CT ---
EXAMINATION TYPE: CT abdomen pelvis w con DATE OF EXAM: 02/17/2018 COMPARISON: Ultrasound 07/11/2013 INDICATION: hydronephrosis, hematuria DLP: 659.6 mGycm, Automated exposure control for dose reduction was used. CONTRAST: 100 mL of Isovue 300. Study performed with Oral Contrast TECHNIQUE: Axial images were obtained from above the diaphragm to the pubic rami in the axial plane a t 5 mm thick sections. Reconstructed images are reviewed on the computer in the coronal plane. FINDINGS: Limited CT sections are obtained the lung bases. The lung bases are clear. CT ABDOMEN: Liver: Normal Spleen: Normal. Small splenule is inferior and medial to the spleen. Pancreas: Normal Adrenal glands: The adrenal glands are normal. Gallbladder: Normal Kidneys: No masses are evident. No hydronephrosis is present. Peripelvic cysts are present bilaterall y. This may account for the appearance of a stable mild left hydronephrosis. No cortical cysts are p resent. Delayed images were obtained through the kidneys, which remain unremarkable. Aorta: Vascular calcification is within the aorta. Inferior vena cava: Normal. CT PELVIS: Loops of bowel within the abdomen and pelvis are normal. There are loops of bowel which are incom pletely distended or lack oral contrast limiting their evaluation. Fecal debris is through the colon. Appendix: Normal as visualized. Urinary bladder: Normal. Genitourinary structures: Uterus is normal. Right adnexal region is normal. There is likely a 1.9 cm left ovarian cyst. This could potentially be a bladder ear diverticulum. Osseous structures: No suspicious lytic or sclerotic lesions. IMPRESSIONS: 1. Peripelvic cysts. 2. Left ovarian cyst versus diverticulum from the urinary bladder.
== END | disposition home or self-care (01) ==
LOC: RADCTMAIN 14:43
PROVIDERS: ATTEND Urology
DX: N94.89 Other specified conditions associated with female genital organs and menstrual cycle (principal); Z88.0 Allergy status to penicillin
CPT/HCPCS: 82565; 84520; 74177; Q9967 ×2

== ENCOUNTER → 2018-05-20 | Outpatient (CLI) | payer BC ==
--- NOTE | 2018-05-20 16:27 | P.PN ---
Subjective Progress Note Date: 05/20/18 Principal diagnosis: Tiffanie is a 52-year-old white female who is status post left breast lumpectomy with radiation therapy and 2017. The tumor was a stage IIB T2 N1a Positive HER-2/lana negative lesion. The patient received radiation and hormonal therapy. She is presently on tamoxifen. She has recently been seen by Dr. Kramer who will consider whether she should be switched to an aromatase inhibitor in the near future. The patient has no complaints at this time. She underwent a mammogram today bilateral and verbal report is that there is nothing of concern. She was told she did have a repeat mammogram in 1 year. Family History: patient: breast cancer Hormonal history: Menarche: 14 Pregnancies: 2, 2 children, firstborn at 24, breast fed: Negative Menopause: Perimenopausal at this time BCP: Negative Hormones: Negative patient is presently on tamoxifen Past surgical history: 1. Ovarian cyst 2. Left breast lumpectomy 3. Right breast stereotactic core biopsy benign Past Medical History: none Social History: smoke: none alcohol: none drugs: none ROS: HEENT: none lungs: none heart: none GI; none : none Musculoskeletal: Questionable early arthritis Objective - Constitutional General appearance: Present: average body habitus - EENT Eyes: Present: EOMI ENT: Present: hearing grossly normal - Neck Neck: Present: normal ROM - Respiratory Respiratory: bilateral: CTA - Cardiovascular Rhythm: regular Heart sounds: normal: S1, S2 - Gastrointestinal General gastrointestinal: Present: soft - Musculoskeletal Musculoskeletal: Present: gait normal - Psychiatric Psychiatric: Present: A&O x's 3, appropriate affect, intact judgment & insight - Additional findings Additional findings: breast exam: right breast: Multi-positional exam no dominant mass or nodule is of concern Right axilla: No adenopathy of concern Left breast: Postoperative changes as well as radiation changes otherwise no dominant masses or nodules of concern of multiple positional exam Left axilla: No adenopathy of concern Assessment and Plan Assessment: Impression/plan: 1. Patient status post left breast lumpectomy radiation therapy for a stage to the left breast cancer no evidence of recurrent cancer 2. Cystic breast changes 3. Patient is presently on tamoxifen may consider switching to anastrozole in the near future this patient is perimenopausal 4. Follow-up in 4 months with repeat breast examination 5. Review results of mammogram. cc: DR. Meyer
--- NOTE | 2018-05-23 09:42 | MM ---
Reason for exam: follow-up at short interval from prior study. Last mammogram was performed 5 months ago. History: Patient is postmenopausal and has history of breast cancer at age 50. Benign MG stereo VAD BX RT of the right breast, June 10, 2017. Malignant MG pre op needle loc LT of the left breast, July 08, 2016. Lumpectomy of the left breast, July 08, 2016. Malignant US biopsy breast VAD LT of the left breast, May 22, 2016. Radiation therapy of the left breast, 2016. Taking antineoplastic for 2 years beginning at age 50. Physical Findings: Nurse Summary: 1cm nodule in the left breast at 1 o'clock (nurse mj). MG 3D Diag Mammo W/Cad JACLYN Bilateral CC and MLO view(s) were taken. Prior study comparison: December 27, 2017, right breast MG 3d diag mammo w/cad RT. May 14, 2017, bilateral MG 3d diag mammo w/cad JACLYN. The breast tissue is heterogeneously dense. This may lower the sensitivity of mammography. No significant new findings when compared with previous films. These results were verbally communicated with the patient and result sheet given to the patient on 05/20/18. ASSESSMENT: Benign, BI-RAD 2 RECOMMENDATION: Follow-up diagnostic mammogram of both breasts in 1 year.
== END | disposition home or self-care (01) ==
LOC: RADMAMWWP 14:47
PROVIDERS: ATTEND Surgery
DX: Z08 Encounter for follow-up examination after completed treatment for malignant neoplasm (principal); Z85.3 Personal history of malignant neoplasm of breast
CPT/HCPCS: 77062; 77066

== ENCOUNTER → 2018-11-12 | Outpatient (CLI) | payer BC ==
[2018-11-12 09:58] LABS: Basophils % (A) 1 %; Eosinophils # (A) 0.1 k/uL (0-0.7); Eosinophils % (A) 3 %; HCT 41.2 % (34.0-46.0); HGB 14.8 gm/dL (11.4-16.0); Lymphocytes # (A) 1.6 k/uL (1.0-4.8); Lymphocytes % (A) 32 %; MCH 31.4 pg (25.0-35.0); MCHC 35.9 g/dL (31.0-37.0); MCV 87.5 fL (80.0-100.0); Mean Platelet Volume 6.2; Monocytes # (A) 0.3 k/uL (0-1.0); Monocytes % (A) 6 %; Neutrophils # (A) 2.9 k/uL (1.3-7.7); Neutrophils % (A) 57 %; Platelet Count 269 k/uL (150-450); RBC 4.71 m/uL (3.80-5.40); RDW 12.8 % (11.5-15.5)
== END | disposition home or self-care (01) ==
LOC: LABPAT 08:41
PROVIDERS: ATTEND Obstetrics & Gynecology
DX: Z01.812 Encounter for preprocedural laboratory examination (principal); Z01.818 Encounter for other preprocedural examination
CPT/HCPCS: 36415; 85025; 93005

== ENCOUNTER → 2018-11-18 | Outpatient (CLI) | payer BC ==
[2018-11-18 15:13] VITALS: BP 124/74; PULSE 73; RESP 18; TEMP 98.1; BMI 27.4
--- NOTE | 2018-11-18 15:24 | P.PN ---
Subjective Progress Note Date: 11/18/18 Tiffanie is a 53-year-old white female who is status post left breast lumpectomy with radiation therapy in 2017. The tumor was a stage IIB T2 N1a Positive HER-2/lana negative lesion. The patient received radiation and hormonal therapy. She is presently on tamoxifen. She has recently been seen by Dr. Kramer who will consider whether she should be switched to an aromatase inhibitor in the near future. She is still having hot flashes. The patient has no complaints at this time related to her breast. She underwent a mammogram on 05-20-18 this was bilateral there is nothing of concern, BI RAD 2 repeat mammogram in 1 year. Tiffanie underwent breast conservation surgery [place] [id number] identify and multiple foci of invasive cancer, the largest of which was 21 mm and grade 2. 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 Margins were uninvolved by invasive and DCIS. 9 nodes were removed one with macro metastases along with micro-metastases. Oncotype DX return to see 13. Tiffanie received external beam radiation to the whole breast and regional nodes including the supraclavicular fossa. Family History: patient: breast cancer brother: lung cancer stage 3, a smoker Hormonal history: Menarche: 14 Pregnancies: 2, 2 children, firstborn at 24, breast fed: Negative Menopause: Perimenopausal at this time BCP: Negative Hormones: Negative patient is presently on tamoxifen Past surgical history: 1. Ovarian cyst 2. Left breast lumpectomy 3. Right breast stereotactic core biopsy benign Past Medical History: none Social History: smoke: none alcohol: none drugs: none ROS: constitutional: hot flashes HEENT: none lungs: none heart: none GI; none : D&C on Wednesday for spotting Musculoskeletal: Questionable early arthritis Pshcy: one Ariadne: Negative Hematologic: Negative ALLERGIES: Penicillin Objective - Exam BMI 27.5 - Constitutional General appearance: Present: average body habitus - EENT Eyes: Present: EOMI ENT: Present: hearing grossly normal - Neck Neck: Present: normal ROM - Respiratory Respiratory: bilateral: CTA - Cardiovascular Rhythm: regular Heart sounds: normal: S1, S2 - Gastrointestinal General gastrointestinal: Present: soft - Integumentary Integumentary: Present: normal turgor - Musculoskeletal Musculoskeletal: Present: gait normal - Psychiatric Psychiatric: Present: A&O x's 3, appropriate affect - Additional findings Additional findings: Breast exam: Right breast: Multiple positional exam no dominant masses or nodules of concern Right axilla: No adenopathy of concern Left breast: Radiation changes to the skin well-healed scar left breast upper outer quadrant area multiple positional exam no dominant masses or nodules of concern Left axilla: No adenopathy of concern Assessment and Plan Assessment: Impression: 1. Personal history of stage IIB left breast cancer, status post lumpectomy radiation therapy and presently on Arimidex 2. Family history of cancer 3. Fibrocystic breast changes 4. Radiation changes of the skin 5. Hot flashes patient on Effexor 6. No evidence of recurrent cancer Plan: 1. Bilateral mammogram in May with physician exam at that time 2. Continue to follow with medical and radiation oncology 3. Medical management of medical conditions CC: Dr. Meyer
== END | disposition home or self-care (01) ==
LOC: WWCWWP 15:03
PROVIDERS: ATTEND Surgery
DX: Z53.9 Procedure and treatment not carried out, unspecified reason (principal)

== ENCOUNTER 2018-11-21 06:30 | Day surgery (SDC) | payer BC ==
[2018-11-17 11:44] VITALS: BMI 27.4
--- NOTE | 2018-11-20 16:03 | P.HPOB ---
History of Present Illness H&P Date: 11/20/18 Chief Complaint: Postmenopausal bleeding, endometrial thickening This is a 53-year-old female 2 para 2 who presents for dilation and curettage with hysteroscopy secondary to postmenopausal bleeding and endometrial thickening on ultrasound. She went approximately 15 months with no vaginal bleeding and then had some spotting that was brown but heavy approximate 2 months ago. She has been having recurrent episodes of this approximate 2 times a week for the last 6 weeks. Pelvic ultrasound showed a uterus measuring 8.4 x 4.7 x 4.3 cm with an endometrial thickness of 10 mm. There were 2 fibroids the largest of which was 1.5 cm. Both ovaries appeared normal. In light of the postmenopausal bleeding along with endometrial thickening while she is on tamoxifen for breast cancer treatment, the decision is to maintain to proceed with dilation and curettage with hysteroscopy to evaluate. Obstetrical history: . History of 2 vaginal deliveries. Gynecologic history: No history of sexually transmitted diseases. Social history: She is . 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 Review of Systems Constitutional: Denies chills, Denies fever Eyes: denies blurred vision, denies pain Ears, nose, mouth and throat: Denies headache, Denies sore throat Cardiovascular: Denies chest pain, Denies shortness of breath Respiratory: Denies cough Gastrointestinal: Denies abdominal pain, Denies diarrhea, Denies nausea, Denies vomiting Genitourinary: Reports abnormal vaginal bleeding Menstruation: Reports postmenopausal Musculoskeletal: Denies myalgias Integumentary: Denies pruritus, Denies rash Neurological: Denies numbness, Denies weakness Psychiatric: Denies anxiety, Denies depression Past Medical History Past Medical History: Cancer Additional Past Medical History / Comment(s): migraines, breast cancer 2017 History of Any Multi-Drug Resistant Organisms: None Reported Past Surgical History: Breast Surgery, Tubal Ligation Additional Past Surgical History / Comment(s): left breast biopsy, cyst removed from ovary, surgery on left thumb, left breast lumpectomy 2017 Past Anesthesia/Blood Transfusion Reactions: No Reported Reaction Past Psychological History: No Psychological Hx Reported Smoking Status: Former smoker Past Alcohol Use History: None Reported Past Drug Use History: None Reported - Past Family History Mother Family Medical History: Diabetes Mellitus Brother(s) Family Medical History: Diabetes Mellitus Medications and Allergies Home Medications Medication Instructions Recorded Confirmed Type Tamoxifen Citrate 20 mg PO QAM 12/30/17 11/18/18 History Venlafaxine HCl 75 mg PO DAILY 05/20/18 11/18/18 History Aspirin 325 mg PO DAILY 11/17/18 11/18/18 History Release 1 tab PO HS 11/18/18 11/18/18 History Allergies Allergy/AdvReac Type Severity Reaction Status Date / Time Penicillins Allergy Mild Rash/Hives Verified 11/18/18 15:10 Exam Osteopathic Statement: *. No significant issues noted on an osteopathic structural exam other than those noted in the History and Physical/Consult. HEENT: Within normal limits Heart: Regular rate and rhythm Lungs: Clear to auscultation bilaterally Abdomen: Soft, nontender Pelvic exam: Uterus is anteverted, nontender, with no adnexal masses or tenderness palpated. Extremities: Negative Homans Assessment and Plan (1) Post-menopausal bleeding Status: Acute Code(s): N95.0 - POSTMENOPAUSAL BLEEDING SNOMED Code(s): 96941708 (2) Endometrial thickening on ultrasound Status: Acute Code(s): R93.8 - ABNORMAL FINDINGS ON DIAGNOSTIC IMAGING OF RYAN * DO NOT USE * SNOMED Code(s): 855535255 Plan: Proceed with dilation and curettage with hysteroscopy. I have discussed the risks, benefits, and alternative therapies for the above- mentioned procedure and for both sedation/anesthesia as well as necessary blood products administration, if indicated, as they pertain to this patient. The patient has indicated her understanding and acceptance of the risks and procedures discussed.
[~2018-11-21 06:30] MED LIST changes: -HYDROmorphone 0.5 MG/0.5 ML SYRINGE IVP PRN; -ONDANSETRON 4 MG/2 ML VIAL IVP ONE; -SCOPOLAMINE 1.5MG/72HR PATCH TRANSDERM ONE; +fentaNYL (PF) 50 MCG/ML 2 ML AMP IV PRN
[2018-11-21] MEDS ORDERED: ONDANSETRON 4 MG/2 ML VIAL IVP ONE (07:00)
[2018-11-21] MEDS ORDERED: PROPOFOL 10 MG/ML 20 ML VIAL IV ONE (07:19)
[2018-11-21] MEDS ORDERED: LIDOCAINE 1% INJ 10MG/ML (20 ML MDV) ONE (07:19)
[2018-11-21] MEDS ORDERED: MIDAZOLAM 2 MG/2 ML VIAL ONE (07:19)
--- NOTE | 2018-11-21 07:43 | P.OP ---
Date of Procedure: 11/21/18 Preoperative Diagnosis: Postmenopausal bleeding, endometrial thickening Postoperative Diagnosis: Same Procedure(s) Performed: Dilation and curettage with hysteroscopy Anesthesia: other (Mask general) Surgeon: Radha Reinoso Estimated Blood Loss (ml): 3 Pathology: other (Endometrial curettings) Condition: stable Disposition: same day Indications for Procedure: This is a 53-year-old female 2 para 2 who presents for dilation and curettage with hysteroscopy secondary to postmenopausal bleeding and endometrial thickening on ultrasound. She went approximately 15 months with no vaginal bleeding and then had some spotting that was brown but heavy approximate 2 months ago. She has been having recurrent episodes of this approximate 2 times a week for the last 6 weeks. Pelvic ultrasound showed a uterus measuring 8.4 x 4.7 x 4.3 cm with an endometrial thickness of 10 mm. There were 2 fibroids the largest of which was 1.5 cm. Both ovaries appeared normal. In light of the postmenopausal bleeding along with endometrial thickening while she is on tamoxifen for breast cancer treatment, the decision is to maintain to proceed with dilation and curettage with hysteroscopy to evaluate. Operative Findings: Uterus is anteverted, sounded to 8 cm. No adnexal masses are palpated. Upon hysteroscopy, a slightly irregular contour was noted consistent with submucosal fibroid type change. No abnormal thickening was noted. Very scant endometrial tissue was obtained. Both tubal ostia are visualized. Description of Procedure: The patient was taken to the operating room where she is placed in the dorsal lithotomy position. She is prepped and draped in the normal sterile fashion. Her bladder is drained with a catheter and then removed. Examination is performed under anesthesia. Uterus is sounded be anteverted, with no adnexal masses palpated. Next a weighted speculum was placed in the patient's vagina. A right angle retractor is used to visualize the cervix. The anterior lip of the cervix is grasped with a single-tooth tenaculum. Uterus is sounded to 8 cm. Cervix is then gently dilated with Post dilators until a hysteroscope could be passed. Hysteroscopy is performed using normal saline. The above-noted findings were made and pictures are taken. Hysteroscope was withdrawn and then the cervix is gently dilated further. A polyp forceps was introduced with no tissue obtained. Next a medium-size sharp curet was introduced and sharp curettage was performed until a gritty texture was noted. Minimal further tissue was obtained. Single-tooth tenaculum was removed. No bleeding was noted. All instruments are removed from the vagina. Specimen was sent to pathology. All sponge and needle counts are correct. The patient is then taken to recovery room in stable condition.
[2018-11-21] MEDS ORDERED: KETOROLAC 30 MG/ML 1 ML VIAL IVP ONE (08:00)
[2018-11-21 08:06] VITALS: TEMP 97
[2018-11-21 08:27] VITALS: RESP 16
[2018-11-21 08:50] VITALS: BP 134/75; PULSE 73
== END 2018-11-21 09:05 | disposition home or self-care (01) ==
LOC: OR 06:30
PROVIDERS: ATTEND Obstetrics & Gynecology
DX: N72 Inflammatory disease of cervix uteri (principal); N87.9 Dysplasia of cervix uteri, unspecified; N95.0 Postmenopausal bleeding; R93.89 Abnormal findings on diagnostic imaging of other specified body structures; D25.9 Leiomyoma of uterus, unspecified; C50.919 Malignant neoplasm of unspecified site of unspecified female breast; G43.909 Migraine, unspecified, not intractable, without status migrainosus; F32.9 Major depressive disorder, single episode, unspecified; Z88.0 Allergy status to penicillin; Z98.51 Tubal ligation status; Z98.890 Other specified postprocedural states; Z87.891 Personal history of nicotine dependence; Z79.899 Other long term (current) drug therapy; Z79.810 Long term (current) use of selective estrogen receptor modulators (SERMs); Z79.82 Long term (current) use of aspirin; Z97.2 Presence of dental prosthetic device (complete) (partial); Z96.5 Presence of tooth-root and mandibular implants; Z83.3 Family history of diabetes mellitus
CPT/HCPCS: 81025; 88305; 58558; J2250; J1100; J2405; J2001; J1885; J2704

== ENCOUNTER → 2019-03-15 | Outpatient (CLI) | payer BC ==
--- NOTE | 2019-03-15 23:09 | CT ---
EXAMINATION TYPE: CT neck chest without and with contrast DATE OF EXAM: 03/15/2019 COMPARISON: CT chest from 01/04/2018 and 06/16/2017 HISTORY: 53-year-old female neck pain, hx of left breast ca TECHNIQUE: Contiguous axial scanning of the head and neck performed without and with IV Contrast, pat ient injected with 100 mL of Isovue 300. Coronal/sagittal reconstructions performed. CT DLP: 1030 (accession [id number]), 1027 (accession [id number]) mGycm Automated exposure control for dose reduction was used. FINDINGS: NECK: Visualized intracranial structures, orbits and globes, paranasal sinuses, mastoid air cells appear cl ear. Nasopharynx appears clear. Punctate calcifications in the bilateral palatine tonsils suggest sequela of prior infection. Otherwise, oropharynx appears clear. Epiglottis and prevertebral soft tissues within normal limits. Glottic and subglottic structures as w ell as the tracheal column appear clear. Thyroid, submandibular, and parotid glands appear satisfactory. No cervical lymphadenopathy seen by CT size criteria. Scattered nonenlarged lymph nodes are present o n both sides of the neck. Bones: No osseous destructive process. CHEST: Heart normal size without pericardial effusion. Aorta normal caliber with conventional arch vessel branching anatomy. Biozorb device within the posterior lateral aspect of the left breast suggests site of excision. Portions of the axilla are excluded from view. No mediastinal or hilar lymphadenopathy. No internal m ammary chain lymphadenopathy. Calcified lymph nodes within the right hilum suggests sequela of granul omatous disease. There is mild centrilobular emphysema. Some subpleural reticulations along the anterior left upper lo be have improved from 01/04/2018 and suggest prior radiation therapy change. Some faint groundglass a t the left apex is also noted, fairly similar to 01/04/2018, likely additional posttherapy change. No consolidation or pleural effusion otherwise seen. Inferior splenule. Bilateral parapelvic cysts are suggested. Bones: No osseous destructive process. Mild degenerative disc disease. IMPRESSION: NECK: NO SPECIFIC ABNORMALITY SEEN. CHEST: 1. Biozorb device lateral posterior left breast indicating the lumpectomy site. 2. Some underlying subpleural reticulations within the left upper lobe show improvement from 01/05/20 18, compatible with post radiation therapy change. Some faint groundglass in the left apex remains si milar. 3. That axillae are partially excluded and not entirely assessed on this study. 4. COPD with mild emphysema. No suspicious pulmonary nodule or lymphadenopathy.
== END | disposition home or self-care (01) ==
LOC: RADCTMAIN 14:56
PROVIDERS: ATTEND Radiology Radiation Oncology
DX: Z00.6 Encounter for examination for normal comparison and control in clinical research program (principal); J43.9 Emphysema, unspecified; C50.412 Malignant neoplasm of upper-outer quadrant of left female breast; C77.9 Secondary and unspecified malignant neoplasm of lymph node, unspecified; Z87.891 Personal history of nicotine dependence; Z92.3 Personal history of irradiation; Z17.0 Estrogen receptor positive status [ER+]
CPT/HCPCS: 70490; 70491; 71250; 71260; Q9967

== ENCOUNTER → 2019-07-20 | Outpatient (CLI) | payer BC ==
--- NOTE | 2019-07-25 09:39 | MM ---
Reason for exam: additional evaluation requested from prior study. Last mammogram was performed 1 year and 2 months ago. History: Patient is postmenopausal and has history of breast cancer at age 50. Benign MG stereo VAD BX RT of the right breast, June 10, 2017. Malignant MG pre op needle loc LT of the left breast, July 08, 2016. Lumpectomy of the left breast, July 08, 2016. Malignant US biopsy breast VAD LT of the left breast, May 22, 2016. Radiation therapy of the left breast, 2016. Taking antineoplastic for 3 years beginning at age 50. Physical Findings: Nurse did not find any significant physical abnormalities on exam. MG 3D Diag Mammo W/Cad JACLYN Bilateral CC and MLO view(s) were taken. Spot compression MLO view(s) were taken of the right breast. Prior study comparison: May 20, 2018, bilateral MG 3d diag mammo w/cad JACLYN. December 27, 2017, right breast MG 3d diag mammo w/cad RT. The breast tissue is heterogeneously dense. This may lower the sensitivity of mammography. Benign appearing bilateral calcifications. Right superior distortion at middle depth persists on additional spot MLO view. No CC correlate. Precautionary ultrasound will be performed. Left post therapy change. Right biopsy marker noted. These results were verbally communicated with the patient and result sheet given to the patient on 07/20/19. ASSESSMENT: Incomplete: need additional imaging evaluation, BI-RAD 0 RECOMMENDATION: Ultrasound of the right breast. (superior)
--- NOTE | 2019-07-25 09:40 | USB ---
Reason for exam: additional evaluation requested from abnormal screening. History: Patient is postmenopausal and has history of breast cancer at age 50. Benign MG stereo VAD BX RT of the right breast, June 10, 2017. Malignant MG pre op needle loc LT of the left breast, July 08, 2016. Lumpectomy of the left breast, July 08, 2016. Malignant US biopsy breast VAD LT of the left breast, May 22, 2016. Radiation therapy of the left breast, 2016. Taking antineoplastic for 3 years beginning at age 50. US Breast Limited RT Right limited breast ultrasound including focal area of concern, retroareolar and axilla demonstrates axillary lymph node. These results were verbally communicated with the patient and result sheet given to the patient on 07/20/19. ASSESSMENT: Negative, BI-RAD 1 RECOMMENDATION: Follow-up diagnostic mammogram of the right breast in 6 months.
== END | disposition home or self-care (01) ==
LOC: RADMAMWWP 14:50
PROVIDERS: ATTEND Surgery
DX: R92.8 Other abnormal and inconclusive findings on diagnostic imaging of breast (principal); Z85.3 Personal history of malignant neoplasm of breast
CPT/HCPCS: 77062; 77066

== ENCOUNTER → 2019-07-27 | Outpatient (CLI) | payer BC ==
[2019-07-27 15:42] VITALS: BP 121/76; PULSE 74; RESP 18; TEMP 98.2
--- NOTE | 2019-07-27 16:32 | P.PN ---
Subjective Progress Note Date: 07/27/19 Principal diagnosis: Stage IIB T2N1a left breast 2016 Tiffanie is a 53 year old white female status post left breast lumpectomy with radiation therapy and 2017. The patient received radiation and hormonal therapy. She is presently on tamoxifen. Her blood is being checked to see whether she should be switched to an aromatase inhibitor. She is not complaining of any problems at this time. Her pathology revealed multiple foci of invasive cancer, largest was 21 mm in great 2. 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 The margins were uninvolved by invasive cancer or DCIS. 9 nodes were removed with one showing macro metastases along with micro- metastases. An Oncotype DX returned at 13. Tiffanie received external beam radiation to the whole breast and regional nodes including the supraclavicular fossa. She had a bilateral mammogram in 6419 nothing of concern was noted in the left breast over ultrasound of the right breast was recommended. This was performed on the same day and this was felt to be negative BIRADS 1 and follow-up diagnostic mammogram of the right breast in 6 months time was recommended with a bilateral mammogram in 1 year. Family history: Patient: Breast cancer Bladder: Lung cancer stage III a smoker Hormonal history: Menarche: 14 Pregnancies: 2, 2 children, first one at 24, breast-fed: Negative Menopause: Perimenopausal at this time control pills: Negative Hormones: Negative patient is presently taking tamoxifen and being considered for anastrozole Surgical history: 1. Ovarian cyst 2. Left breast lumpectomy 3. Lopressor tachycardia core biopsy/benign Medical history: Negative Social history: Smoking: Negative Alcohol: Negative Drugs: Negative Constitutional: Hot flashes HEENT: Wears glasses Lungs: Negative Heart: Negative GI: Negative : Negative Musculoskeletal: Intermittent muscular discomfort Psychiatric: Negative Hematologic: Negative ALLERGIES: Penicillin Objective - Vital Signs Vital signs: Vital Signs Temp 98.2 F 07/27/19 15:39 Pulse 74 07/27/19 15:39 Resp 18 07/27/19 15:39 BP 121/76 07/27/19 15:39 Pulse Ox 99 07/27/19 15:39 Intake & Output 07/26/19 07/27/19 07/27/19 18:59 06:59 18:59 Weight 77.111 kg - Exam BMI 29.2 - Constitutional General appearance: Present: average body habitus - EENT Eyes: Present: EOMI ENT: Present: hearing grossly normal - Respiratory Respiratory: bilateral: CTA - Cardiovascular Rhythm: regular Heart sounds: normal: S1, S2 - Gastrointestinal General gastrointestinal: Present: normal bowel sounds, soft - Integumentary Integumentary: Present: normal turgor - Musculoskeletal Musculoskeletal: Present: gait normal - Psychiatric Psychiatric: Present: A&O x's 3, appropriate affect, intact judgment & insight - Additional findings Additional findings: breast exam: BRA 36 C/D inspection: No nipple inversion, well-healed scar left breast from prior lumpectomy; slight asymmetry of the breast with the right breast being larger than the left breast Palpation: right breast: no dominant masses or nodules of concern on multiple positional exam, fibrocystic changes Right axilla: No adenopathy of concern Left breasts: Well-healed scars from prior surgery, multiple positional exam postoperative radiation changes otherwise no dominant masses or nodules of concern Left axilla: No adenopathy of concern Assessment and Plan Assessment: Impression: 1. Patient status post lumpectomy and radiation therapy for left breast stage II cancer, no evidence of recurrence 2. Recent mammogram the lesion of concern in left breast, right breast mammogram milligrams resulted in an ultrasound which was negative follow-up diagnostic mammogram of right breast in 6 months 3. Fibrocystic breast changes Plan: 1. Right breast mammogram in 6 months with physician exam at that time 2. Patient to call sooner if any questions of concern CC: Dr. Meyer encounter 30 minutes > 50% of time in planning and counselling
== END | disposition home or self-care (01) ==
LOC: WWCWWP 15:18
PROVIDERS: ATTEND Surgery
DX: Z53.9 Procedure and treatment not carried out, unspecified reason (principal)

== ENCOUNTER → 2019-11-09 | Outpatient (CLI) | payer BC ==
--- NOTE | 2019-11-13 14:16 | BD ---
EXAMINATION TYPE: Axial Bone Density DATE OF EXAM: 11/09/2019 COMPARISON: NONE CLINICAL HISTORY: Height: 5 FT 4 IN Weight: 164 FRAX RISK QUESTIONS: Alcohol (3 or more units per day): NO Family History (Parent hip fracture): NO Glucocorticoids (More than 3mos): NO (Ex: prednisone, prednisolone, methylprednisolone, dexamethasone, and hydrocortisone). History of Fracture in Adulthood: NO Secondary Osteoporosis: 1. Type 1 Diabetes: NO 2. Hyperthyroidism: NO 3. Menopause before 45: NO 4. Malnutrition: NO 5. Chronic liver disease: NO Rheumatoid Arthritis: NO Current Tobacco Use: NO RISK FACTORS HISTORY OF: Family History of Osteoporosis: UNSURE Active: YES Postmenopausal woman: AGE 53 MEDICATIONS: Additional Medications: HORMONE KARENA, CALCIUM , EFFEXOR, FLEXERIL Additional History: BREAST CANCER 2017 RADIATION EXAM MEASUREMENTS: Bone mineral densitometry was performed using the [employer] System. Bone mineral density as measured about the Lumbar spine is: ----- L1-L4(G/cm2): 1.158 T Score Values are as follows: ----- L2: -0.7 ----- L3: 0.8 ----- L4: -0.4 ----- L1-L4: -0.2 Bone mineral density has: DECREASED -5.8 % since study of: 2018 Bone mineral density about the R hip (g/cm2): 1.012 Bone mineral density about the L hip (g/cm2): 1.031 T Score values are as follows: -----R Neck: -0.2 -----L Neck: 0.0 -----R Total: -0.3 -----L Total: -0.1 Bone mineral density has: DECREASED -1.4 % since study of: 2018 IMPRESSION: Normal (Values between +1 and -1 indicate normal bone mass). Consider repeating this study in 5 year s or sooner if there is some new clinical indication. NOTE: T-SCORE=SD OF THE YOUNG ADULT MEAN.
== END | disposition home or self-care (01) ==
LOC: RADBDWWP 15:36
PROVIDERS: ATTEND Internal Medicine Hematology & Oncology
DX: Z79.890 Hormone replacement therapy (principal); Z88.0 Allergy status to penicillin
CPT/HCPCS: 77080

== ENCOUNTER → 2020-03-05 | Outpatient (CLI) | payer BC ==
[2020-03-05 17:14] LABS: Basophils # (A) 0.1 k/uL (0-0.2); Basophils % (A) 1 %; Eosinophils # (A) 0.1 k/uL (0-0.7); Eosinophils % (A) 2 %; HCT 41.1 % (34.0-46.0); HGB 13.9 gm/dL (11.4-16.0); Lymphocytes % (A) 33 %; MCHC 33.7 g/dL (31.0-37.0); MCV 91.8 fL (80.0-100.0); Mean Platelet Volume 7.4; Monocytes # (A) 0.4 k/uL (0-1.0); Monocytes % (A) 7 %; Neutrophils # (A) 3.3 k/uL (1.3-7.7); Neutrophils % (A) 55 %; Platelet Count 257 k/uL (150-450); RBC 4.48 m/uL (3.80-5.40); RDW 13.5 % (11.5-15.5)
== END | disposition home or self-care (01) ==
LOC: LABWHC1 15:48
PROVIDERS: ATTEND Obstetrics & Gynecology
DX: Z01.818 Encounter for other preprocedural examination (principal); N95.0 Postmenopausal bleeding
CPT/HCPCS: 36415; 85025; 93005

== ENCOUNTER 2020-03-12 06:38 | Day surgery (SDC) | payer BC ==
--- NOTE | 2020-03-11 16:03 | P.HPOB ---
History of Present Illness H&P Date: 03/11/20 Chief Complaint: Postmenopausal bleeding, endometrial thickening This is a 54 y.o. female, 2, para 2, who presents for dilatation and curettage with hysteroscopy due to postmenopausal bleeding and endometrial thickening on ultrasound. She complains of bleeding that was heavy with clots and lasted about 2 weeks about a month ago. It is associated with a burning pelvic pain. She had a D&C in 2019 for postmenopausal bleeding and pathology was benign at that time. US shows uterus 9.2 x 5.6 x 5 cm with endometrial thickness of 8 mm with tiny cystic change within. Both ovaries appeared normal. Recent hormone levels showed menopausal range. She does have a history of breast cancer and was on Anastrozole up until the bleeding episode. OB Hx: . History of 2 vaginal deliveries. 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 Review of Systems Constitutional: Denies chills, Denies fever Eyes: denies blurred vision, denies pain Ears, nose, mouth and throat: Denies headache, Denies sore throat Cardiovascular: Denies chest pain, Denies shortness of breath Respiratory: Denies cough Gastrointestinal: Reports abdominal pain Genitourinary: Reports abnormal vaginal bleeding, Reports pelvic pain, Denies dysuria Menstruation: Reports postmenopausal Musculoskeletal: Denies myalgias Integumentary: Denies pruritus, Denies rash Neurological: Denies numbness, Denies weakness Psychiatric: Denies anxiety, Denies depression Past Medical History Past Medical History: Cancer, GERD/Reflux Additional Past Medical History / Comment(s): past hx migraines, breast cancer 2017 with surgery & radiation., constipation, post menopause bleeding. History of Any Multi-Drug Resistant Organisms: None Reported Past Surgical History: Tubal Ligation Additional Past Surgical History / Comment(s): left breast biopsy, cyst from ovary, surgery left thumb, left breast lumpectomy 2017 Past Anesthesia/Blood Transfusion Reactions: No Reported Reaction, Motion Sickne ss Additional Past Anesthesia/Blood Transfusion Reaction / Comment(s): motion sickness on cruise ship Past Psychological History: No Psychological Hx Reported Smoking Status: Former smoker Past Alcohol Use History: None Reported Additional Past Alcohol Use History / Comment(s): quit smoking 2008, smoked for 20 yrs - 1 PPD Past Drug Use History: None Reported - Past Family History Mother Family Medical History: Diabetes Mellitus Brother(s) Family Medical History: Cancer, Diabetes Mellitus Additional Family Medical History / Comment(s): lung cancer Medications and Allergies Home Medications Medication Instructions Recorded Confirmed Type Venlafaxine HCl 75 mg PO PC-LUNCH 05/20/18 03/08/20 History Anastrozole [Arimidex] 1 mg PO PC-LUNCH 03/08/20 03/08/20 History Aspirin 300 Or Placebo 1 dose PO DAILY 03/08/20 History Calcium Carbonate [Calcium] 1,200 mg PO DAILY 03/08/20 03/08/20 History Allergies Allergy/AdvReac Type Severity Reaction Status Date / Time Penicillins Allergy Mild Rash/Hives Verified 03/08/20 15:10 Exam Osteopathic Statement: *. No significant issues noted on an osteopathic structural exam other than those noted in the History and Physical/Consult. HEENT: within normal limits Heart: regular rate and rhythm Lungs: clear to auscultation bilaterally Abdomen: soft, non-tender Pelvic: uterus small, anteverted, non-tender with no adnexal masses palpated. Extremities: neg. Andrés's Assessment and Plan (1) Endometrial thickening on ultrasound Current Visit: No Status: Acute Code(s): R93.8 - ABNORMAL FINDINGS ON DIAGNOSTIC IMAGING OF RYAN * DO NOT USE * SNOMED Code(s): 922258274 (2) Post-menopausal bleeding Current Visit: No Status: Acute Code(s): N95.0 - POSTMENOPAUSAL BLEEDING SNOMED Code(s): 59732467 Plan: Proceed with dilatation and curettage with hysteroscopy. I have discussed the risks, benefits, and alternative therapies for the above- mentioned procedure and for both sedation/anesthesia as well as necessary blood products administration, if indicated, as they pertain to this patient. The patient has indicated her understanding and acceptance of the risks and pr ocedures discussed.
[~2020-03-12 06:38] MED LIST changes: -DEXAMETHASONE SOD PHOSPHATE 10 MG/ML 1 ML VIAL IV ONE; +DEXAMETHASONE SOD PHOSPHATE 4 MG/ML 1 ML VIAL IV ONE; +LIDOCAINE 1% (10MG/ML) FOR IV START INTRADERMA PRN; -LIDOCAINE 1% 20 ML VIAL (10MG/ML) FOR IV START INTRADERMA PRN; +ONDANSETRON 4 MG/2 ML VIAL IVP ONE; -fentaNYL (PF) 50 MCG/ML 2 ML AMP IV PRN
[2020-03-12] MEDS ORDERED: LACTATED RINGERS 1,000 ML IV ONE (06:56)
[2020-03-12] MEDS ORDERED: HYDROmorphone 0.5 MG/0.5 ML SYRINGE IVP PRN (07:00)
[2020-03-12] MEDS ORDERED: MIDAZOLAM 2 MG/2 ML VIAL ONE (08:27)
[2020-03-12] MEDS ORDERED: PROPOFOL 10 MG/ML 20 ML VIAL IV ONE (08:27)
[2020-03-12] MEDS ORDERED: LIDOCAINE 1% INJ 10MG/ML (20 ML MDV) ONE (08:27)
[2020-03-12] MEDS ORDERED: fentaNYL (PF) 50 MCG/ML 2 ML AMP ONE (08:27)
--- NOTE | 2020-03-12 08:57 | P.OP ---
Date of Procedure: 03/12/20 Preoperative Diagnosis: Postmenopausal bleeding Endometrial thickening Postoperative Diagnosis: Same Procedure(s) Performed: Dilation and curettage with hysteroscopy Anesthesia: other (Mask general) Surgeon: Radha Reinoso Estimated Blood Loss (ml): 5 Pathology: other (Endometrial curettings) Condition: stable Disposition: same day Indications for Procedure: This is a 54 y.o. female, 2, para 2, who presents for dilatation and curettage with hysteroscopy due to postmenopausal bleeding and endometrial thickening on ultrasound. She complains of bleeding that was heavy with clots and lasted about 2 weeks about a month ago. It is associated with a burning pelvic pain. She had a D&C in 2019 for postmenopausal bleeding and pathology was benign at that time. US shows uterus 9.2 x 5.6 x 5 cm with endometrial thickness of 8 mm with tiny cystic change within. Both ovaries appeared normal. Recent hormone levels showed menopausal range. She does have a history of breast cancer and was on Anastrozole up until the bleeding episode. Operative Findings: Uterus is mid to anteverted position, sounded to 8-1/2 cm. No adnexal masses are palpated. No endometrial thickening is visualized. Both tubal ostia are visualized. Scant endometrial curettings are obtained. Description of Procedure: The patient is taken to the operating room where she is placed in the dorsal lithotomy position. She is prepped and draped in the normal sterile fashion. Her bladder is drained with a catheter. Examination is performed under anesthesia. Uterus is found to be mid to anteverted position with no adnexal masses palpated. Next a weighted speculum was placed in the patient's vagina and right angle retractor was used to visualize the cervix. The anterior lip of the cervix is grasped with a single-tooth tenaculum. Uterus is sounded to 8-1/2 cm. Cervix is gently dilated with Post dilators. Hysteroscopy is performed using normal saline. The above noted findings are made and pictures are taken. The cervix is gently dilated further. A polyp forceps was introduced with no tissue obtained. Next a medium-size sharp curet was introduced and sharp curettage was performed until a gritty texture was noted. Very scant endometrial tissue was obtained. Was removed and sent to pathology. Next the single-tooth tenaculum was removed and no bleeding was noted. All instruments are removed from the vagina. All sponge counts are correct. The patient is then taken to recovery room in stable condition.
[2020-03-12 09:04] VITALS: RESP 16; TEMP 96.9
[2020-03-12 10:05] VITALS: BP 114/71; PULSE 80
== END 2020-03-12 10:21 | disposition home or self-care (01) ==
LOC: OR 06:38
PROVIDERS: ATTEND Obstetrics & Gynecology
DX: N95.0 Postmenopausal bleeding (principal); N85.8 Other specified noninflammatory disorders of uterus; K21.9 Gastro-esophageal reflux disease without esophagitis; F32.9 Major depressive disorder, single episode, unspecified; C50.919 Malignant neoplasm of unspecified site of unspecified female breast; Z88.0 Allergy status to penicillin; Z98.890 Other specified postprocedural states; Z86.69 Personal history of other diseases of the nervous system and sense organs; Z92.3 Personal history of irradiation; Z87.19 Personal history of other diseases of the digestive system; Z98.51 Tubal ligation status; Z87.898 Personal history of other specified conditions; Z87.891 Personal history of nicotine dependence; Z79.82 Long term (current) use of aspirin; Z79.899 Other long term (current) drug therapy; Z97.2 Presence of dental prosthetic device (complete) (partial); Z83.3 Family history of diabetes mellitus; Z80.1 Family history of malignant neoplasm of trachea, bronchus and lung
CPT/HCPCS: 88305; 58558; J2250; J1100; J2405; J2001; J3010; J2704

== ENCOUNTER → 2020-04-05 | Outpatient (CLI) | payer BC ==
--- NOTE | 2020-04-05 15:01 | MM ---
Reason for exam: follow-up at short interval from prior study. Last mammogram was performed 8 months ago. History: Patient is postmenopausal and has history of breast cancer at age 50. Benign MG stereo VAD BX RT of the right breast, June 10, 2017. Malignant MG pre op needle loc LT of the left breast, July 08, 2016. Lumpectomy of the left breast, July 08, 2016. Malignant US biopsy breast VAD LT of the left breast, May 22, 2016. Radiation therapy of the left breast, 2016. Taking antineoplastic for 3 years beginning at age 50. Physical Findings: Nurse did not find any significant physical abnormalities on exam. MG 3D Diag Mammo W/Cad RT CC and MLO view(s) were taken of the right breast. Prior study comparison: July 20, 2019, bilateral MG 3d diag mammo w/cad JACLYN. May 20, 2018, bilateral MG 3d diag mammo w/cad JACLYN. The breast tissue is heterogeneously dense. This may lower the sensitivity of mammography. Previous mammotome biopsy in the right breast. No significant new findings when compared with previous films. These results were verbally communicated with the patient and result sheet given to the patient on 04/05/20. ASSESSMENT: Benign, BI-RAD 2 RECOMMENDATION: Routine screening mammogram of both breasts in 4 months. Back on schedule.
== END | disposition home or self-care (01) ==
LOC: RADMAMWWP 14:09
PROVIDERS: ATTEND Surgery
DX: Z08 Encounter for follow-up examination after completed treatment for malignant neoplasm (principal); Z85.3 Personal history of malignant neoplasm of breast
CPT/HCPCS: 77061; 77065

== ENCOUNTER → 2020-04-19 | Outpatient (CLI) | payer BC ==
[2020-04-19 16:27] VITALS: BP 112/73; PULSE 76; RESP 16; TEMP 98.3
--- NOTE | 2020-04-19 17:06 | P.PN ---
Subjective Progress Note Date: 04/19/20 Principal diagnosis: left breast cancer, Stage IIB T2N1a left breast 2016 Tiffanie is a 54 year old white female status post left breast lumpectomy with radiation therapy and 2017. The patient received radiation and hormonal therapy. She is presently on anastrazole prior she was on tamoxifen. She did have BRCA testing done which came back negative. She is not complaining of any problems at this time. Her pathology revealed multiple foci of invasive cancer, largest was 21 mm in great 2. 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 The margins were uninvolved by invasive cancer or DCIS. 9 nodes were removed with one showing macro metastases along with micro-metastases. An Oncotype DX returned at 13. Tiffanie received external beam radiation to the whole breast and regional nodes including the supraclavicular fossa. She had a bilateral mammogram 04-05-19 nothing of concern was noted in either breast. She is not complaining of any nipple discharge or skin changes. [place] [id number] reviewed. Family history: Patient: Breast cancer brother: Lung cancer stage IIIA, smoker Hormonal history: Menarche: 14 Pregnancies: 2, 2 children, first one at 24, breast-fed: Negative Menopause: Perimenopausal at this time control pills: Negative Hormones: Negative patient is presently taking tamoxifen and being considered for anastrozole Surgical history: 1. Ovarian cyst 2. Left breast lumpectomy 3. Lopressor tachycardia core biopsy/benign 4. D&C Medical history: Negative Social history: Smoking: Negative Alcohol: Negative Drugs: Negative Constitutional: Hot flashes HEENT: Wears glasses Lungs: Negative Heart: Negative GI: Negative : Negative Musculoskeletal: Intermittent muscular discomfort Psychiatric: Negative Hematologic: Negative ALLERGIES: Penicillin Objective - Vital Signs Vital signs: Vital Signs Temp 98.3 F 04/19/20 16:24 Pulse 76 04/19/20 16:24 Resp 16 04/19/20 16:24 BP 112/73 04/19/20 16:24 Pulse Ox 100 04/19/20 16:24 Intake & Output 04/18/20 04/19/20 04/19/20 18:59 06:59 18:59 Weight 77.111 kg - Exam BMI 29.2 - Constitutional General appearance: Present: average body habitus - EENT Eyes: Present: EOMI ENT: Present: hearing grossly normal - Neck Neck: Present: normal ROM - Respiratory Respiratory: bilateral: CTA - Cardiovascular Rhythm: regular Heart sounds: normal: S1, S2 - Gastrointestinal General gastrointestinal: Present: soft - Integumentary Integumentary: Present: normal turgor - Musculoskeletal Musculoskeletal: Present: gait normal - Psychiatric Psychiatric: Present: A&O x's 3, appropriate affect, intact judgment & insight - Additional findings Additional findings: Bresat exam: BRA: 36C inspection: Bilateral grade 2 ptosis Palpation: Right breast: Multiple positional exam no dominant masses or nodules of concern Right axilla: No adenopathy of concern Left breast: Multiple positional exam, cystic changes, well-healed scar from prior surgery no dominant masses or nodules of concern no evidence of recurrent cancer Left axilla: No adenopathy of concern Assessment and Plan Assessment: Impression: 1. Patient status post left breast lumpectomy sentinel node biopsy for a stage IIB invasive ductal carcinoma, no evidence of recurrent cancer 2. Patient was initially on a limited duct which was stopped secondary to vaginal bleeding but has been restarted after being cleared by gynecology 3. Patient was noted to have a pulmonary nodule and she was cleared for this Plan: 1. Repeat bilateral mammogram in 1 year 2. Repeat follow-up if her physical exam in 6 months 3. Continue to follow with medical oncology 4. Follow up sooner if any questions or concerns CC: Dr. Meyer
== END ==
LOC: WWCWWP 16:13
PROVIDERS: ATTEND Surgery
DX: C50.912 Malignant neoplasm of unspecified site of left female breast (principal); N93.9 Abnormal uterine and vaginal bleeding, unspecified; R91.1 Solitary pulmonary nodule

== ENCOUNTER → 2020-07-22 | Outpatient (CLI) | payer BC ==
--- NOTE | 2020-07-24 13:35 | MM ---
Reason for exam: screening (asymptomatic). Last mammogram was performed 4 months ago. History: Patient is postmenopausal and has history of breast cancer at age 50. Benign MG stereo VAD BX RT of the right breast, June 10, 2017. Malignant MG pre op needle loc LT of the left breast, July 08, 2016. Lumpectomy of the left breast, July 08, 2016. Malignant US biopsy breast VAD LT of the left breast, May 22, 2016. Radiation therapy of the left breast, 2016. Taking antineoplastic for 3 years beginning at age 50. Physical Findings: A clinical breast exam by your physician is recommended on an annual basis and results should be correlated with mammographic findings. MG 3D Screening Mammo W/Cad Bilateral CC and MLO view(s) were taken. Prior study comparison: April 05, 2020, right breast MG 3d diag mammo w/cad RT. July 20, 2019, bilateral MG 3d diag mammo w/cad JACLYN. May 20, 2018, bilateral MG 3d diag mammo w/cad JACLYN. May 14, 2017, bilateral MG 3d diag mammo w/cad JACLYN. May 13, 2016, bilateral MG 3d diag mammo w/cad JACLYN. The breast tissue is heterogeneously dense. This may lower the sensitivity of mammography. Previous mammotome biopsy in the right breast. Post surgical and post therapy change left breast with a biozorb device. No significant changes when compared with prior studies. ASSESSMENT: Benign, BI-RAD 2 RECOMMENDATION: Routine screening mammogram of both breasts in 1 year.
== END | disposition home or self-care (01) ==
LOC: RADMAMWWP 16:30
PROVIDERS: ATTEND Surgery
DX: Z12.31 Encounter for screening mammogram for malignant neoplasm of breast (principal); Z78.0 Asymptomatic menopausal state; Z85.3 Personal history of malignant neoplasm of breast
CPT/HCPCS: 77063; 77067

== ENCOUNTER → 2020-07-26 | Outpatient (CLI) | payer BC ==
--- NOTE | 2020-07-26 15:52 | P.PN ---
Subjective Progress Note Date: 07/26/20 Principal diagnosis: left breast stage IIB cancer left breast cancer, Stage IIB T2N1a left breast 2016 Tiffanie is a 54 year old white female status post left breast lumpectomy with radiation therapy in 2017. The patient received radiation and hormonal therapy. She is presently on anastrazole prior she was on tamoxifen. She did have BRCA testing done which came back negative. She is not complaining of any problems at this time. Her pathology revealed multiple foci of invasive cancer, largest was 21 mm . 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 The margins were uninvolved by invasive cancer or DCIS. 9 nodes were removed with one showing macro metastases along with micro- metastases. Oncotype DX returned at 13. Tiffanie received external beam radiation to the whole breast and regional nodes including the supraclavicular fossa. She had a bilateral mammogram 07-22-20 and nothing of concern was noted in either breast. She is not complaining of any nipple discharge or skin changes. She has not complained of any lumps masses or nodules of concern in either breast. Family history: Patient: Breast cancer brother: Lung cancer stage IIIA, smoker Hormonal history: Menarche: 14 Pregnancies: 2, 2 children, first one at 24, breast-fed: Negative Menopause: Perimenopausal at this time control pills: Negative Hormones: Negative patient is presently taking tamoxifen and being considered for anastrozole Surgical history: 1. Ovarian cyst 2. Left breast lumpectomy 3. Lopressor tachycardia core biopsy/benign 4. D&C Medical history: Negative Social history: Smoking: Negative Alcohol: Negative Drugs: Negative Constitutional: Hot flashes HEENT: Wears glasses Lungs: Negative Heart: Negative GI: Negative : Negative Musculoskeletal: Intermittent muscular discomfort Psychiatric: Negative Hematologic: Negative ALLERGIES: Penicillin Objective - Constitutional General appearance: Present: average body habitus - EENT Eyes: Present: EOMI ENT: Present: hearing grossly normal - Neck Neck: Present: normal ROM - Respiratory Respiratory: bilateral: CTA - Cardiovascular Rhythm: regular Heart sounds: normal: S1, S2 - Gastrointestinal General gastrointestinal: Present: soft - Integumentary Integumentary: Present: normal turgor - Musculoskeletal Musculoskeletal: Present: gait normal - Psychiatric Psychiatric: Present: A&O x's 3, appropriate affect, intact judgment & insight - Additional findings Additional findings: Breast exam: BRA: 36C inspection: Bilateral grade 2 ptosis, well-healed scar left breast Palpation: Right breast: Multi-positional exam or dominant masses or nodules of concern Right axilla: No adenopathy of concern Left breast: Multi-positional exam fibrocystic changes well-healed scar from prior surgery no dominant masses or nodules of concern no evidence of recurrent cancer Left axilla: No adenopathy of concern Assessment and Plan Assessment: Impression: 1. Patient status post left breast lumpectomy sentinel biopsy for stage IIB invasive ductal carcinoma, no evidence of recurrent cancer 2. Patient initially on anestrazole secondary to vaginal bleeding but this has been restarted and she is doing well 3. Patient was noted to have a pulmonary nodule but she was cleared for this 4. Bilateral mammogram performed on 67 benign BIRADS 2 Plan: 1. Repeat bilateral mammogram in 1 year 2. Continue anastrozole/continue to follow with medical oncology 3. Patient have follow-up examination here in 6 months CC: Dr. Meyer
[2020-07-26 16:00] VITALS: BP 112/76; PULSE 87; RESP 18; TEMP 98.4
== END ==
LOC: WWCWWP 15:28
PROVIDERS: ATTEND Surgery
DX: Z08 Encounter for follow-up examination after completed treatment for malignant neoplasm (principal); Z85.3 Personal history of malignant neoplasm of breast; Z98.890 Other specified postprocedural states; Z79.811 Long term (current) use of aromatase inhibitors; Z92.3 Personal history of irradiation; Z88.0 Allergy status to penicillin; Z87.891 Personal history of nicotine dependence

== ENCOUNTER → 2021-03-13 | Outpatient (CLI) | payer BC ==
[2021-03-13 16:24] VITALS: BP 127/66; PULSE 88; RESP 17; TEMP 98
--- NOTE | 2021-03-13 17:01 | P.PN ---
Subjective Progress Note Date: 03/13/21 Principal diagnosis: left breast stage IIB invasive cancer left breast cancer, Stage IIB T2N1a left breast 2016 Tiffanie is a 54 year old white female status post left breast lumpectomy with radiation therapy and 2017. The patient received radiation and hormonal therapy. She was initially treated with tamoxifen that then was changed to anastrozole. The patient did not tolerate the anastrozole she developed memory issues and pain in her muscles. She was than changed to letrazole and she continued to have pain and memory changes. He has had recent discussion with him and the aromatase inhibitors have been stopped and the consideration is to go back on the tamoxifen. She did have BRCA testing done which came back negative. She is not complaining of any problems at this time. Her pathology revealed multiple foci of invasive cancer, largest was 21 mm in great 2. 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 The margins were uninvolved by invasive cancer or DCIS. 9 nodes were removed with one showing macro metastases along with micro-metastases. An Oncotype DX returned at 13. Tiffanie received external beam radiation to the whole breast and regional nodes including the supraclavicular fossa. She had a bilateral mammogram 04-05-19 nothing of concern was noted in either breast. She is not complaining of any nipple discharge or skin changes. Medical oncology no from Dr. Kramer of 03-06-21 reviewed. The patient had a bilateral mammogram in [id number] this was benign BIRADS 2. Family history: Patient: Breast cancer brother: Lung cancer stage IIIA, smoker Hormonal history: Menarche: 14 Pregnancies: 2, 2 children, first one at 24, breast-fed: Negative Menopause: Perimenopausal at this time control pills: Negative Hormones: Negative patient is presently taking tamoxifen and being considered for anastrozole Surgical history: 1. Ovarian cyst 2. Left breast lumpectomy 3. Lopressor tachycardia core biopsy/benign 4. D&C Medical history: Negative Social history: Smoking: Negative Alcohol: Negative Drugs: Negative Constitutional: Hot flashes HEENT: Wears glasses Lungs: Negative Heart: Negative GI: Negative : Negative Musculoskeletal: Intermittent muscular discomfort Psychiatric: Negative Hematologic: Negative ALLERGIES: Penicillin Objective - Vital Signs Vital signs: Vital Signs Temp 98.0 F 03/13/21 16:19 Pulse 88 03/13/21 16:19 Resp 17 03/13/21 16:19 BP 127/66 03/13/21 16:19 Pulse Ox Intake & Output 03/12/21 03/13/21 03/13/21 18:59 06:59 18:59 Weight 78.925 kg - Constitutional General appearance: Present: cooperative - EENT Eyes: Present: EOMI ENT: Present: hearing grossly normal - Neck Neck: Present: normal ROM - Respiratory Respiratory: bilateral: CTA - Cardiovascular Heart sounds: normal: S1, S2 - Gastrointestinal General gastrointestinal: Present: soft - Integumentary Integumentary: Present: normal turgor - Musculoskeletal Musculoskeletal: Present: gait normal - Psychiatric Psychiatric: Present: A&O x's 3, appropriate affect, intact judgment & insight - Additional findings Additional findings: Breast Exam: BRA: 36C inspection: Well-healed scar left breast from prior lumpectomy Bilateral grade 2/3 ptosis Palpation: Right breast: Multi-positional exam fibrocystic changes no dominant masses or nodules of concern Right axilla: No adenopathy of concern Left breast: Post radiation and surgical changes no discrete or dominant masses or nodules of concern Left axilla: No adenopathy of concern Assessment and Plan Assessment: Impression: Stage II the left breast invasive ductal carcinoma patient status post lumpectomy sentinel node biopsy, radiation therapy, and hormonal therapy Patient is not tolerating antihormone therapy well at this time she is considering changing back to tamoxifen in discussing this with medical oncology Plan: Continue to follow up with medical oncology Follow-up here in 6 months Follow up sooner if any questions or concerns CC: Dr. Meyer
== END ==
LOC: WWCWWP 15:38
PROVIDERS: ATTEND Surgery
DX: Z85.3 Personal history of malignant neoplasm of breast (principal); Z98.890 Other specified postprocedural states; Z92.3 Personal history of irradiation; Z79.890 Hormone replacement therapy; Z88.0 Allergy status to penicillin; Z87.891 Personal history of nicotine dependence

== ENCOUNTER → 2021-07-24 | Outpatient (CLI) | payer BC ==
--- NOTE | 2021-07-26 14:29 | MM ---
Reason for Exam: Screening (asymptomatic). Last screening mammogram was performed 12 month(s) ago. Patient History: Menarche at age 14. First Full-Term at age 24. Postmenopausal. Breast cancer, left, age 50. 07/08/2016, Lumpectomy on the Left side. 06/10/2017, Benign Core Biopsy on the right side. 07/08/2016, Malignant Core Biopsy on the left side. 05/22/2016, Malignant Core Biopsy on the left side. 2016, Radiation Therapy on the left side. Prior Study Comparison: 07/20/2019 Bilateral Diagnostic Mammogram, [facility]. 04/05/2020 Right Diagnostic Mammogram, [facility]. 07/22/2020 Bilateral Screening Mammogram, [facility]. Tissue Density: The breast tissue is heterogeneously dense. This may lower the sensitivity of mammography. Findings: Analyzed By CAD. Postsurgical changes left breast with a Biozorb device posterior upper-outer quadrant. Benign oil cyst calcifications left greater than right. Unchanged benign group of punctate calcification central posterior right breast. Areas of asymmetric density remain unchanged. No significant change from prior exams. Overall Assessment: Benign, BI-RAD 2 Management: Screening Mammogram of both breasts in 1 year. A clinical breast exam by your physician is recommended on an annual basis and results should be correlated with mammographic findings. Also, the patient should continue with monthly self breast exams. Electronically signed and approved by: Kim Escobar M.D. Radiologist
== END | disposition home or self-care (01) ==
LOC: RADMAMWWP 07:50
PROVIDERS: ATTEND Surgery
DX: Z12.31 Encounter for screening mammogram for malignant neoplasm of breast (principal)
CPT/HCPCS: 77063; 77067

== ENCOUNTER → 2021-09-12 | Outpatient (CLI) | payer BC ==
[2021-09-12 11:08] VITALS: BP 115/71; PULSE 71; RESP 17; TEMP 98.3
--- NOTE | 2021-09-12 11:29 | P.PN ---
Subjective Progress Note Date: 09/12/21 Principal diagnosis: left breast stage IIB invasive ductal cancer Stage IIB T2N1a left breast 2016 Tiffanie is a 54 year old white female status post left breast lumpectomy with radiation therapy in 2017. The patient received radiation and hormonal therapy. She was initially treated with tamoxifen that then was changed to anastrozole. The patient did not tolerate the anastrozole she developed memory issues and pain in her muscles. She was than changed to letrazole and she continued to have pain and memory changes. She has had recent discussion with him and the aromatase inhibitors have been stopped and the consideration is to go back on the tamoxifen, 's point she is decided not to take any She did have BRCA testing done which came back negative. Her pathology revealed multiple foci of invasive cancer, largest was 21 mm in great size. 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 The margins were uninvolved by invasive cancer or DCIS. 9 nodes were removed with one showing macro metastases along with micro-metastases. An Oncotype DX returned at 13. Tiffanie received external beam radiation to the whole breast and regional nodes including the supraclavicular fossa. She had a bilateral mammogram 04-05-19 nothing of concern was noted in either breast. She is not complaining of any new lumps masses or nodules of concern in either breast. She has not complaining of any skin changes or nipple changes. The patient had a bilateral mammogram in 07-24-21 this was benign BIRADS 2. Family history: Patient: Breast cancer brother: Lung cancer stage IIIA, smoker Hormonal history: Menarche: 14 Pregnancies: 2, 2 children, first one at 24, breast-fed: Negative Menopause: Perimenopausal at this time control pills: Negative Hormones: Negative patient is presently taking tamoxifen and being considered for anastrozole Surgical history: 1. Ovarian cyst 2. Left breast lumpectomy 3. Lopressor tachycardia core biopsy/benign 4. D&C Medical history: Negative Social history: Smoking: Negative Alcohol: Negative Drugs: Negative Constitutional: Hot flashes HEENT: Wears glasses Lungs: Negative Heart: Negative GI: Negative : Negative Musculoskeletal: Intermittent muscular discomfort Psychiatric: Negative Hematologic: Negative ALLERGIES: Penicillin Objective - Vital Signs Vital signs: Vital Signs Temp 98.3 F 09/12/21 11:06 Pulse 71 09/12/21 11:06 Resp 17 09/12/21 11:06 BP 115/71 09/12/21 11:06 Pulse Ox 97 09/12/21 11:06 FiO2 Intake & Output 09/11/21 09/12/21 09/12/21 18:59 06:59 18:59 Weight 72.575 kg - Exam BMI: 27.5 - Constitutional General appearance: Present: cooperative - EENT Eyes: Present: EOMI ENT: Present: hearing grossly normal - Neck Neck: Present: normal ROM - Respiratory Respiratory: bilateral: CTA - Cardiovascular Rhythm: regular Heart sounds: normal: S1, S2 - Gastrointestinal General gastrointestinal: Present: soft - Integumentary Integumentary: Present: normal turgor - Musculoskeletal Musculoskeletal: Present: gait normal - Psychiatric Psychiatric: Present: A&O x's 3, appropriate affect, intact judgment & insight - Additional findings Additional findings: Breast Exam: BRA: 34C Inspection: Left breast slightly probably than right breast, bilateral grade 2 ptosis Palpation: Right breast: Multi-positional exam fibrocystic changes no dominant masses or nodules of concern Right axilla: No adenopathy of concern Left breast: Well-healed scar from prior surgery, no dominant masses or nodules of concern, fibrocystic changes Left axilla: No adenopathy of concern Assessment and Plan Assessment: Impression: Stage IIB left breast invasive ductal carcinoma no evidence of recurrence Fibrocystic breast changes Recent bilateral mammogram benign BIRADS 2 this was done on At this time the patient is not taking an aromatase inhibitor Plan: Repeat examination in 6 months Follow-up with medical oncology Follow-up radiation oncology If patient notes any changes in her pressure will follow-up sooner CC: Dr. Meyer
== END ==
LOC: WWCWWP 10:48
PROVIDERS: ATTEND Surgery
DX: Z08 Encounter for follow-up examination after completed treatment for malignant neoplasm (principal); Z85.3 Personal history of malignant neoplasm of breast; N60.11 Diffuse cystic mastopathy of right breast; N60.12 Diffuse cystic mastopathy of left breast; Z88.0 Allergy status to penicillin

== ENCOUNTER 2021-11-04 09:46 | Day surgery (SDC) | payer BC ==
[~2021-11-04 09:46] MED LIST changes: -DEXAMETHASONE SOD PHOSPHATE 4 MG/ML 1 ML VIAL IV ONE; -LIDOCAINE 1% (10MG/ML) FOR IV START INTRADERMA PRN; -MIDAZOLAM 2 MG/2 ML VIAL IV PRN; -ONDANSETRON 4 MG/2 ML VIAL IVP ONE; -Pre Op ABX Message 1 EACH MISC MISCELLANE ONE
[2021-11-04 10:57] VITALS: TEMP 98.3
[2021-11-04] MEDS ORDERED: PROPOFOL 10 MG/ML 20 ML VIAL IV ONE (11:35)
[2021-11-04] MEDS ORDERED: LIDOCAINE 2% INJ 20 MG/ML (2 ML VIAL) ONE (11:35)
--- NOTE | 2021-11-04 11:51 | P.PCN ---
Date of Procedure: 11/04/21 Procedure(s) Performed: BRIEF HISTORY: Patient is a 55-year-old pleasant white female scheduled for an elective colonoscopy as a part of evaluation of positive cologuard. PROCEDURE PERFORMED: Colonoscopy. PREOPERATIVE DIAGNOSIS: Positive cologuard. IV sedation per Anesthesia. PROCEDURE: After informed consent was obtained, the patient, was brought into the endoscopy unit. IV sedation was administered by Anesthesia under continuous monitoring. Digital rectal examination was normal. Initially the Olympus CF-160 flexible video colonoscope was then inserted in the rectum, gradually advanced into the cecum without any difficulty. Careful examination was performed as the scope was gradually being withdrawn. Ileocecal valve and the appendiceal orifice were visualized and appeared normal. Prep was excellent. Mucosa of the cecum, ascending colon, transverse colon, descending colon, sigmoid colon, and rectum appeared normal. Retroflexion was performed in the rectum and no lesions were seen. The patient tolerated the procedure well. IMPRESSION: Normal-appearing colon from rectum to cecum no evidence of colorectal neoplasia . RECOMMENDATIONS: Findings of this examination were discussed with the patient as well as a family. She was advised to have a repeat screening colonoscopy in 10 years..
[2021-11-04 12:29] VITALS: BP 112/66; PULSE 57; RESP 20
== END 2021-11-04 12:30 | disposition home or self-care (01) ==
LOC: ORWHC2ENDO 09:46
PROVIDERS: ATTEND Internal Medicine Gastroenterology
DX: R19.5 Other fecal abnormalities (principal); E78.5 Hyperlipidemia, unspecified; G43.909 Migraine, unspecified, not intractable, without status migrainosus; Z87.891 Personal history of nicotine dependence; Z79.899 Other long term (current) drug therapy
CPT/HCPCS: 45378; J2704; J2001

== ENCOUNTER 2022-03-02 18:00 | Emergency (ER) | payer BC ==
[2022-03-02 18:48] VITALS: BP 110/68; PULSE 78; RESP 18; TEMP 98
[2022-03-02] MEDS ORDERED: KETOROLAC 15 MG/ML 1 ML VIAL IM STA (20:11)
[2022-03-02] MEDS ORDERED: ORPHENADRINE 30 MG/ML 2 ML VIAL IM STA (20:11)
[2022-03-02] MEDS ORDERED: LIDOCAINE 5% PATCH TOPICAL SCH (20:15)
--- NOTE | 2022-03-02 20:15 | ED ---
Back Pain HPI - General Chief Complaint: Back Pain/Injury Stated Complaint: back pain Time Seen by Provider: 03/02/22 20:04 Source: patient, RN notes reviewed, old records reviewed Limitations: no limitations - History of Present Illness Initial Comments: Well-appearing 56-year-old female presents ambulatory with complaints of low back pain for one week. Patient states goes deep into her right buttock and painful when she tries to lift her leg. No relief with Motrin. Denies any saddle anesthesia. Denies any injury. She does have a history of breast cancer in 2017 in remission, also hyperlipidemia. MD Complaint: back pain -: week(s) (1) Similar Symptoms Previously: No Place: home Radiation: buttocks (right side) Severity scale (1-10): 7 Consistency: constant Improves With: none Worsens With: movement (lifting leg) Associated Symptoms: denies other symptoms Treatments Prior to Arrival: NSAIDS - Related Data Home Medications Medication Instructions Recorded Confirmed Venlafaxine HCl 75 mg PO HS 05/20/18 10/31/21 Simvastatin [Zocor] 20 mg PO HS 10/31/21 10/31/21 Previous Rx's Medication Instructions Recorded Cyclobenzaprine [Flexeril] 10 mg PO TID PRN #15 tab 03/02/22 Lidocaine 5% Patch [Lidoderm] 1 patch TOPICAL DAILY 14 Days #14 03/02/22 patch Allergies Allergy/AdvReac Type Severity Reaction Status Date / Time Penicillins Allergy Mild Rash/Hives Verified 03/02/22 18:48 Review of Systems ROS Statement: Those systems with pertinent positive or pertinent negative responses have been documented in the HPI. ROS Other: All systems not noted in ROS Statement are negative. Past Medical History Past Medical History: Cancer, Hyperlipidemia Additional Past Medical History / Comment(s): past hx migraines, breast cancer 2017 with surgery & radiation, positive cologard History of Any Multi-Drug Resistant Organisms: None Reported Past Surgical History: Breast Surgery, Orthopedic Surgery, Tubal Ligation Additional Past Surgical History / Comment(s): left breast biopsy, cyst from ovary, surgery left thumb, left breast lumpectomy 2017; D&C 02/2020; Past Anesthesia/Blood Transfusion Reactions: No Reported Reaction, Motion Sickness Past Psychological History: No Psychological Hx Reported Smoking Status: Former smoker Past Alcohol Use History: Rare Past Drug Use History: None Reported - Past Family History Mother Family Medical History: Diabetes Mellitus Brother(s) Family Medical History: Cancer, Diabetes Mellitus General Exam Limitations: no limitations General appearance: alert, in no apparent distress Head exam: Present: atraumatic, normocephalic Eye exam: Absent: scleral icterus, conjunctival injection Respiratory exam: Absent: respiratory distress, accessory muscle use Cardiovascular Exam: Present: regular rate Extremities exam: Present: normal capillary refill. Absent: tenderness, pedal edema, calf tenderness Back exam: Present: tenderness (Right lumbar paraspinal). Absent: CVA tenderness (R), CVA tenderness (L), muscle spasm, vertebral tenderness, rash noted Expanded Back exam: Absent: saddle anesthesia Back exam: Sciatic Notch Tenderness: Right Neurological exam: Present: alert, oriented X3, normal gait Psychiatric exam: Present: normal affect, normal mood Skin exam: Present: warm, dry, normal color. Absent: cyanosis, diaphoretic, petechiae, pallor Course Vital Signs 03/02/22 18:46 Temperature 98 F Pulse Rate 78 Respiratory 18 Rate Blood Pressure 110/68 O2 Sat by Pulse 100 Oximetry Medical Decision Making - Medical Decision Making Patient was given Toradol Lidoderm patch and Norflex for her pain with some improvement. She is able to ambulate with steady gait. No saddle anesthesia. No bowel or bladder incontinence. No fevers. Due to her history of breast cancer 2017 with acute back pain with no injury a CT of the LS-spine was ordered. My interpretation is no evidence of acute fracture. Radiologist interpretation negative CT lumbar spine, no fracture focal bone destruction. She was prescribed Flexeril and Lidoderm patches directed to continue Tylenol and Motrin at home She was discharged and follow up with her primary care doctor for continuation of care. Case discussed with Dr. Mariscal. Was pt. sent in by a medical professional or institution? @ -no Did you speak to anyone other than the patient for history? @ -no Did you review nursing and triage notes? @ -yes i agree Were old charts reviewed? @ -no Differential Diagnosis? @ -Differential Back Pain: Strain, zoster, cauda equina syndrome, epidural abscess, vertebral osteomyel itis, discitis, fracture, subluxation, disc herniation, DJD, spinal stenosis, dissection, AAA, pancreatitis, peptic ulcer disease, pyelonephritis, kidney stone, this is not meant to be an all-inclusive list. EKG interpreted by me (3pts min.)? @ -[none] X-rays interpreted by me (1pt min.)? @ -[none] CT interpreted by me (1pt min.)? @ -yes as above U/S interpreted by me (1pt. min.)? @ -[none] What testing was considered but not performed? (CT, X-rays, U/S, labs)? Why? @ no What meds were considered but not given? Why? @ -no Did you discuss the management of the patient with other professionals? @ -no Did you reconcile home meds? @ -no Was smoking cessation discussed for >3mins.? @ -[none] Was critical care preformed (if so, how long)? @ -no Were there social determinants of health that impacted care today? How? (Homelessness, low income, unemployed, alcoholism, drug addiction, transportation, low edu. Level, literacy, decrease access to med. care, intermediate, rehab)? @ -none Was there de-escalation of care discussed even if they declined? (Discuss DNR or withdrawal of care, Hospice)? @ -no What co-morbidities impacted this encounter? (DM, HTN, Smoking, COPD, CAD, Cancer, CVA, Hep., AIDS, mental health diagnosis, sleep apnea, morbid obesity)? @ -cancer Was patient admitted / discharged? @ -discharged Undiagnosed new problem with uncertain prognosis? @ -[none] Drug Therapy requiring intensive monitoring for toxicity (Heparin, Nitro, Insulin, Cardizem)? @ -no Were any procedures done? @ -no Diagnosis/symptom? @ -acute back pain Acute, or Chronic, or Acute on Chronic? @ -acute Uncomplicated (without systemic symptoms) or Complicated (systemic symptoms)? @ -uncomplicated Side effects of treatment? @ -[none] Exacerbation, Progression, or Severe Exacerbation] @ -[no] Poses a threat to life or bodily function? @ -[no] Disposition Clinical Impression: Low back pain Disposition: HOME SELF-CARE Condition: Good Instructions (If sedation given, give patient instructions): Acute Low Back Pain (ED) Additional Instructions: Take Tylenol and or Motrin as needed for pain. Muscle relaxer as needed. Use Lidoderm patches topically for pain and back. Back pain can sometimes take several weeks to resolve. Follow-up with primary care doctor next week. Return to the emergency room with any new or concerning symptoms. Prescriptions: Cyclobenzaprine [Flexeril] 10 mg PO TID PRN #15 tab PRN Reason: Muscle Spasm Lidocaine 5% Patch [Lidoderm] 1 patch TOPICAL DAILY 14 Days #14 patch Is patient prescribed a controlled substance at d/c from ED?: No Referrals: Segun Meyer DO [Primary Care Provider] - 1-2 days Time of Disposition: 21:30
--- NOTE | 2022-03-02 20:59 | CT ---
EXAMINATION TYPE: CT lumbar spine wo con DATE OF EXAM: 03/02/2022 COMPARISON: None HISTORY: Low back pain, no injury. Hx of breast CA. CT DLP: 875.3 mGycm Automated exposure control for dose reduction was used. Images obtained from T12 S1 vertebra with no contrast. Lumbar vertebrae have normal spacing and alignment. Posterior elements are intact. No compression fra cture. Abdominal aorta shows mild atheromatous changes. No lumbar paraspinal mass. Facet joints are i ntact. No focal bone destruction. No evidence of lumbar spinal stenosis. Sacroiliac joints appear int act. There are bilateral multiple renal parapelvic cysts. IMPRESSION: Negative CT scan lumbar spine. No fracture. No focal bone destruction
== END 2022-03-02 21:42 | disposition home or self-care (01) ==
LOC: EC 18:00
DX: M54.50 Low back pain, unspecified (principal); E78.5 Hyperlipidemia, unspecified; Z88.0 Allergy status to penicillin; Z98.51 Tubal ligation status; Z79.899 Other long term (current) drug therapy; Z87.891 Personal history of nicotine dependence
CPT/HCPCS: 72131; 99283; 96372; J2360; J1885

== ENCOUNTER → 2022-05-21 | Outpatient (CLI) | payer BC ==
[2022-05-21 15:28] VITALS: BP 113/66; PULSE 74; RESP 18; TEMP 98.1
--- NOTE | 2022-05-21 15:32 | P.PN ---
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 The patient received radiation and hormonal therapy. She was initially treated with tamoxifen that then was changed to anastrozole. The patient did not tolerate the anastrozole she developed memory issues and pain in her muscles. She was than changed to letrazole and she continued to have pain and memory changes. She has had recent discussion with him and the aromatase inhibitors have been stopped and the consideration is to go back on the tamoxifen, 's point she is decided not to take any She did have BRCA testing done which came back negative. Her pathology revealed multiple foci of invasive cancer, largest was 21 mm in great size. 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 The margins were uninvolved by invasive cancer or DCIS. 9 nodes were removed with one showing macro metastases along with micro-metastases. An Oncotype DX returned at 13. Tiffanie received external beam radiation to the whole breast and regional nodes including the supraclavicular fossa. She had a bilateral mammogram 04-05-19 nothing of concern was noted in either breast. She is not complaining of any new lumps masses or nodules of concern in either breast. She has not complaining of any skin changes or nipple changes. The patient had a bilateral mammogram in 07-24-21 this was benign BIRADS 2. 4-08-07 Is not complaining of any new lumps masses or nodules of concern in either breast. She is taking tamoxifen again in March of 2022. She is tolerating it at this time. Family history: Patient: Breast cancer brother: Lung cancer stage IIIA, smoker Hormonal history: Menarche: 14 Pregnancies: 2, 2 children, first one at 24, breast-fed: Negative Menopause: Perimenopausal at this time control pills: Negative Hormones: Negative patient is presently taking tamoxifen and being considered for anastrozole Surgical history: 1. Ovarian cyst 2. Left breast lumpectomy 3. Lopressor tachycardia core biopsy/benign 4. D&C Medical history: Negative Social history: Smoking: Negative Alcohol: Negative Drugs: Negative Constitutional: Hot flashes HEENT: Wears glasses Lungs: Negative Heart: Negative GI: Negative : Negative Musculoskeletal: Intermittent muscular discomfort Psychiatric: Negative Hematologic: Negative ALLERGIES: Penicillin Objective - Constitutional General appearance: Present: cooperative - EENT Eyes: Present: EOMI ENT: Present: hearing grossly normal - Neck Neck: Present: normal ROM - Respiratory Respiratory: bilateral: CTA - Cardiovascular Rhythm: regular Heart sounds: normal: S1, S2 - Gastrointestinal General gastrointestinal: Present: soft - Integumentary Integumentary: Present: normal turgor - Musculoskeletal Musculoskeletal: Present: gait normal - Psychiatric Psychiatric: Present: A&O x's 3, appropriate affect, intact judgment & insight - Additional findings Additional findings: Breast Exam: BRA: 34C Inspection: Left breast slightly larger than right breast, bilateral grade 2 ptosis Palpation: Right breast: Multi-positional exam fibrocystic changes no dominant masses or nodules of concern Right axilla: No adenopathy of concern Left breast: Well-healed scar from prior surgery, no dominant masses or nodules of concern, fibrocystic changes Left axilla: No adenopathy of concern Assessment and Plan Assessment: Impression: Stage IIB left breast invasive ductal carcinoma no evidence of recurrence Fibrocystic breast changes bilateral mammogram benign BIRADS 2 this was done on At this time the patient is not taking an aromatase inhibitor Plan: Repeat examination after mammogram , bilateral mammogram July 2022 Follow-up with medical oncology Follow-up radiation oncology If patient notes any changes in her breast will follow-up sooner CC: Dr. Meyer
== END ==
LOC: WWCWWP 15:18
PROVIDERS: ATTEND Surgery
DX: N60.12 Diffuse cystic mastopathy of left breast (principal); Z80.1 Family history of malignant neoplasm of trachea, bronchus and lung; Z80.3 Family history of malignant neoplasm of breast; Z88.0 Allergy status to penicillin; Z92.3 Personal history of irradiation; Z87.891 Personal history of nicotine dependence

== ENCOUNTER → 2022-06-02 | Outpatient (CLI) | payer BC ==
--- NOTE | 2022-06-05 09:50 | MR ---
EXAMINATION TYPE: MR lumbar spine wo con DATE OF EXAM: 06/02/2022 7:42 PM COMPARISON: CT 03/02/2022 CLINICAL INDICATION:Female, 56 years old with history of M54.16 RADICULOPATHY, LUMBAR REGION; Pain in low back into right side TECHNIQUE: Multi planar, multi sequence imaging was performed utilizing: T1-weighted, T2-weighted, a nd turbo inversion recovery imaging of the lumbar spine. IV Contrast: None. FINDINGS: Alignment: The lumbar vertebral bodies have preserved heights. Mild retrolisthesis of L4 on L5. Cord: The conus medullaris and the distal spinal cord appear unremarkable with regards to their signa l intensity and morphology. Bones/Discs: Bone signal is within normal limits. No abnormal bony edema on inversion recovery sequen matias. Multilevel degenerative disc disease is noted and most pronounced at the L3-L4, L4-L5 and L5-S1. Multilevel disc desiccation is present. T12-L1: No evidence of significant spinal canal stenosis or neural foraminal stenosis. L1-L2: No evidence of significant spinal canal stenosis or neural foraminal stenosis. L2-L3: No evidence of significant spinal canal stenosis. Facet joint arthropathy mild bilateral neura l foraminal stenosis. L3-L4: No evidence of significant spinal canal stenosis. Facet joint arthropathy mild bilateral neura l foraminal stenosis. Trace bilateral facet joint effusions. L4-L5: Disc bulge with annular fissure and facet joint arthropathy without significant spinal canal s tenosis and mild bilateral neural foraminal stenosis. Trace right facet joint effusion. L5-S1: The disc is rounded posterior morphology without significant spinal canal stenosis. Facet join t arthropathy with mild neural foraminal stenosis. Trace bilateral facet joint effusions. Other findings: Peripelvic renal cysts are seen bilaterally. IMPRESSION: 1. No definitive evidence of disc herniation or significant spinal canal stenosis or neural foramina l stenosis. 2. Multilevel disc degeneration with associated osteoarthritic changes worse in the lower lumbar spi ne..
== END | disposition home or self-care (01) ==
LOC: RADMRIMAIN 18:34
PROVIDERS: ATTEND Physical Medicine & Rehabilitation
DX: M47.26 Other spondylosis with radiculopathy, lumbar region (principal); M51.16 Intervertebral disc disorders with radiculopathy, lumbar region
CPT/HCPCS: 72148

== ENCOUNTER → 2022-06-13 | Outpatient (CLI) | payer BC ==
[2022-06-13 13:09] LABS: ALT 15 U/L (8-44); AST 13 U/L (13-35); Chol/HDL Ratio 3.22 Ratio; LDL Cholesterol,Calculated 87.1 mg/dL (0.0-131.0)
== END | disposition home or self-care (01) ==
LOC: LABWHC1 09:15
PROVIDERS: ATTEND Internal Medicine Interventional Cardiology
DX: E78.2 Mixed hyperlipidemia (principal)
CPT/HCPCS: 36415; 80061; 84450; 84460

== ENCOUNTER → 2022-08-10 | Outpatient (CLI) | payer BC ==
--- NOTE | 2022-08-10 13:08 | MM ---
Reason for Exam: Known biopsy proven malignancy. Last screening mammogram was performed 12 month(s) ago. Patient History: Menarche at age 14. First Full-Term at age 24. Postmenopausal. Breast cancer, left, age 50. 07/08/2016, Lumpectomy on the Left side. 06/10/2017, Benign Core Biopsy on the right side. 07/08/2016, Malignant Core Biopsy on the left side. 05/22/2016, Malignant Core Biopsy on the left side. 2016, Radiation Therapy on the left side. Tissue Density: The breast tissue is heterogeneously dense. This may lower the sensitivity of mammography. Findings: Analyzed By CAD. Postsurgical changes of the left breast redemonstrated. Benign round calcifications within both breasts. Areas of asymmetry density remain unchanged. No new suspicious masses or cluster of calcifications within either breast. Previous mammotome biopsy in the right breast. Overall Assessment: Benign, BI-RAD 2 Management: Diagnostic Mammogram of both breasts in 1 year. A clinical breast exam by your physician is recommended on an annual basis and results should be correlated with mammographic findings. This exam should not preclude additional follow-up of suspicious palpable abnormalities. Results were given to the patient verbally at the time of exam. Electronically signed and approved by: Wai Shafer D.O.
== END | disposition home or self-care (01) ==
LOC: RADMAMWWP 12:45
PROVIDERS: ATTEND Surgery
DX: R92.2 Inconclusive mammogram (principal); Z85.3 Personal history of malignant neoplasm of breast; Z78.0 Asymptomatic menopausal state
CPT/HCPCS: 77062; 77066

== ENCOUNTER → 2022-08-14 | Outpatient (CLI) | payer BC ==
--- NOTE | 2022-08-14 14:48 | P.PN ---
Subjective Progress Note Date: 08/14/22 Principal diagnosis: stage IIB left breast invasive ductal cancer 2016 Stage IIB T2N1a left breast invasive ductal cancer 2016 Tiffanie is a 54 year old white female status post left breast lumpectomy with radiation therapy in 2017. The patient received radiation and hormonal therapy. She was initially treated with tamoxifen that then was changed to anastrozole. The patient did not tolerate the anastrozole she developed memory issues and pain in her muscles. She was than changed to letrazole and she continued to have pain and memory changes. She has had recent discussion with him and the aromatase inhibitors have been stopped and the consideration is to go back on the tamoxifen, 's point she is decided not to take any She did have BRCA testing done which came back negative. Her pathology revealed multiple foci of invasive cancer, largest was 21 mm in great size. 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 The margins were uninvolved by invasive cancer or DCIS. 9 nodes were removed with one showing macro metastases along with micro-metastases. An Oncotype DX returned at 13. Tiffanie received external beam radiation to the whole breast and regional nodes including the supraclavicular fossa. She had a bilateral mammogram 04-05-19 nothing of concern was noted in either breast. She is not complaining of any new lumps masses or nodules of concern in either breast. She has not complaining of any skin changes or nipple changes. The patient had a bilateral mammogram in 07-24-21 this was benign BIRADS 2. 05-21-22 Is not complaining of any new lumps masses or nodules of concern in either breast. She is taking tamoxifen again in March of 2022. She is tolerating it at this time. 08-14-22 bilateral mammogram on 08-10-22 BIRAD 2 Patient was coming in today for results of her mammogram. She had a breast examination done several months ago and did not want this to be repeated. She has no complaints of any concerns in her breast. Family history: Patient: Breast cancer brother: Lung cancer stage IIIA, smoker Hormonal history: Menarche: 14 Pregnancies: 2, 2 children, first one at 24, breast-fed: Negative Menopause: Perimenopausal at this time control pills: Negative Hormones: Negative patient is presently taking tamoxifen and being considered for anastrozole Surgical history: 1. Ovarian cyst 2. Left breast lumpectomy 3. Lopressor tachycardia core biopsy/benign 4. D&C Medical history: Negative Social history: Smoking: Negative Alcohol: Negative Drugs: Negative Constitutional: Hot flashes HEENT: Wears glasses Lungs: Negative Heart: Negative GI: Negative : Negative Musculoskeletal: Intermittent muscular discomfort Psychiatric: Negative Hematologic: Negative ALLERGIES: Penicillin Objective - Vital Signs Vital signs: Intake & Output 08/13/22 08/14/22 08/14/22 18:59 06:59 18:59 Weight 72.575 kg - Psychiatric Psychiatric: Present: A&O x's 3, appropriate affect, intact judgment & insight Assessment and Plan Assessment: Impression: Stage IIB left breast invasive ductal carcinoma no evidence of recurrence Fibrocystic breast changes bilateral mammogram benign BIRADS 2 this was done on At this time the patient is not taking an aromatase inhibitor Plan: Repeat examination after mammogram , bilateral mammogram July 2023 Follow-up with medical oncology Follow-up radiation oncology If patient notes any changes in her breast will follow-up sooner CC: Dr. Meyer
== END ==
LOC: WWCWWP 14:25
PROVIDERS: ATTEND Surgery
DX: N60.11 Diffuse cystic mastopathy of right breast (principal); Z80.3 Family history of malignant neoplasm of breast; Z88.0 Allergy status to penicillin; Z92.3 Personal history of irradiation; Z87.891 Personal history of nicotine dependence

== ENCOUNTER → 2023-02-27 | Outpatient (CLI) | payer BC ==
[2023-02-27 14:09] LABS: ALT 16 U/L (8-44); AST 16 U/L (13-35); Chol/HDL Ratio 3.77 Ratio; LDL Cholesterol,Calculated 115.1 mg/dL (0.0-131.0)
== END | disposition home or self-care (01) ==
LOC: LABWHC1 09:34
PROVIDERS: ATTEND Internal Medicine Interventional Cardiology
DX: E78.00 Pure hypercholesterolemia, unspecified (principal)
CPT/HCPCS: 36415; 80061; 84450; 84460

== ENCOUNTER → 2023-08-17 | Outpatient (CLI) | payer BC, OTHER ==
--- NOTE | 2023-08-17 11:03 | MM ---
Reason for Exam: Follow-up at short interval from prior study. Last mammogram was performed 1 year(s) and 1 month(s) ago. Patient History: Menarche at age 14. First Full-Term at age 24. Postmenopausal. Breast cancer, left, age 50. 07/08/2016, Lumpectomy on the Left side. 06/10/2017, Benign Core Biopsy on the right side. 07/08/2016, Malignant Core Biopsy on the left side. 05/22/2016, Malignant Core Biopsy on the left side. 2017, Radiation Therapy on the left side. Tissue Density: There are scattered areas of fibroglandular density. Findings: Analyzed By CAD. Postsurgical and posttreatment changes left breast with bibasilar device present posterior part of quadrant. A couple benign oil cyst calcifications on the left. Areas of asymmetric density on the right remain unchanged. No significant change from prior exams. Overall Assessment: Benign, BI-RAD 2 Management: Screening Mammogram of both breasts in 1 year. Results were given to the patient verbally at the time of exam. Patient should continue monthly self-breast exams. A clinical breast exam by your physician is recommended on an annual basis. This exam should not preclude additional follow-up of suspicious palpable abnormalities. Electronically signed and approved by: Kim Escobar M.D. Radiologist
== END | disposition home or self-care (01) ==
LOC: RADMAMWWP 10:36
PROVIDERS: ATTEND Surgery
DX: Z12.31 Encounter for screening mammogram for malignant neoplasm of breast (principal); Z85.3 Personal history of malignant neoplasm of breast; R92.321 Mammographic fibroglandular density, right breast; Z78.0 Asymptomatic menopausal state
CPT/HCPCS: 77062; 77066

== ENCOUNTER → 2023-09-14 | Outpatient (CLI) | payer BC ==
[2023-09-14 14:49] VITALS: BP 120/71; PULSE 62; RESP 16; TEMP 97.9
--- NOTE | 2023-09-14 15:57 | P.HPOB ---
History of Present Illness H&P Date: 09/14/23 Chief Complaint: The patient is here for her routine gynecologic exam. This is a 57-year-old with an LMP of 2020. The patient is here to establish with this office. It has been about 1 year since her last pelvic exam. She used to see Dr. Reinoso for her gynecologic care. She does have occasional mild hot flashes that are not as bad as before. She is without gynecologic complaints. She denies any postmenopausal bleeding. Review of Systems The patient's weight has been stable over the last year. She denies respiratory, cardiac, or G.I. problems. Past Medical History Past Medical History: Cancer, Hyperlipidemia Additional Past Medical History / Comment(s): past hx migraines. L breast cancer 2017 status post lumpectomy, radiation and 5yr Tamoxifen. PAST [employer] WORKER HISTORY: She has no history of STDs. History of Any Multi-Drug Resistant Organisms: None Reported Past Surgical History: Breast Surgery, Orthopedic Surgery, Tubal Ligation Additional Past Surgical History / Comment(s): left breast biopsy, cyst from ovary, surgery left thumb, left breast lumpectomy 2016; H/S D&C 02/2020; colonoscopy 2022(next after 10y). Past Anesthesia/Blood Transfusion Reactions: No Reported Reaction, Motion Sickness Past Psychological History: No Psychological Hx Reported Smoking Status: Former smoker Past Alcohol Use History: Rare (1/month) Additional Past Alcohol Use History / Comment(s): quit smoking 2008, smoked for 20 yrs - 1 PPD Past Drug Use History: None Reported Additional History: She has been since 1999. 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 - Past Family History Mother Family Medical History: COPD, Diabetes Mellitus Additional Family Medical History / Comment(s): . Brother(s) Family Medical History: Cancer, Diabetes Mellitus Additional Family Medical History / Comment(s): Lung cancer. . Father Additional Family Medical History / Comment(s): Mesothelioma. . Medications and Allergies Home Medications Medication Instructions Recorded Confirmed Type No Known Home Medications 09/14/23 09/14/23 History Allergies Allergy/AdvReac Type Severity Reaction Status Date / Time Penicillins Allergy Mild Rash/Hives Verified 05/21/22 15:29 Exam Vital Signs Temp Pulse Resp BP Pulse Ox 09/14/23 14:43 97.9 F 62 16 120/71 100 Intake and Output 09/14/23 09/14/23 09/14/23 06:59 14:59 22:59 Other: Weight 70.307 kg Height 5 feet 4 inches, weight 155 pounds, BMI 26.6. This is a well-developed well-nourished white female who is alert and oriented times 3 in no acute distress. HEENT: Within normal limits. NECK: Supple without mass or thyromegaly. CHEST AND LUNGS: Clear to auscultation. HEART: Regular rate and rhythm. BREASTS: Are without mass or discharge. The left breast is consistent with previous lumpectomy and radiation therapy. AXILLARY EXAM: Negative for adenopathy. BACK: Negative for CVA tenderness. ABDOMEN: Soft, nontender, without palpable masses. PELVIC EXAM: Normal external genitalia with mild atrophy. Cervix and vagina appear normal mild atrophy. There is no unusual discharge. There is no evidence of prolapse. The uterus is midposition, nongravid size and nontender. There are no palpable adnexal masses or tenderness. RECTAL EXAM: Rectovaginal exam is negative for mass or tenderness and is negative for occult blood. EXTREMITIES: Nontender. IMPRESSION: 1. 57-year-old menopausal female with normal gynecologic exam. 2. History of left breast cancer status post lumpectomy, radiation and 5 years use of tamoxifen, with no evidence of recurrence on exam today. PLAN: 1. Pap smear cotest was performed. 2. Self breast awareness was discussed with the patient. We have also discussed symptoms associated with inflammatory breast cancer. 3. Her last mammogram was done on 08/17/2023 and was benign. This will be repeated in 1 year. 4. Osteoporosis prevention was discussed. I have stressed the importance of adequate calcium, vitamin D and regular exercise. Recommended amounts of calcium and vitamin D were also discussed. She had a normal bone density test done on 11/09/2019. We will plan on repeating this in approximately 2 years. 5. She was advised to return in one year for her annual well woman exam.
== END ==
LOC: WWCWWP 14:17
PROVIDERS: ATTEND Obstetrics & Gynecology
DX: Z00.00 Encounter for general adult medical examination without abnormal findings (principal); E78.00 Pure hypercholesterolemia, unspecified; R31.21 Asymptomatic microscopic hematuria; E66.3 Overweight; Z68.26 Body mass index [BMI] 26.0-26.9, adult; Z78.0 Asymptomatic menopausal state; Z85.3 Personal history of malignant neoplasm of breast; Z92.3 Personal history of irradiation; Z98.890 Other specified postprocedural states; Z87.891 Personal history of nicotine dependence; Z88.0 Allergy status to penicillin

== ENCOUNTER → 2023-11-11 | Outpatient (CLI) | payer BC, OTHER ==
--- NOTE | 2023-11-11 15:38 | P.PN ---
Subjective Progress Note Date: 11/11/23 Principal diagnosis: stage II/b left breast invasive ductal cancer 201608/14/22 Principal diagnosis: Stage IIB T2N1a left breast invasive ductal cancer 2016 Tiffanie is a 58 year old white female status post left breast lumpectomy with radiation therapy in 2017. The patient received radiation and hormonal therapy. She was initially treated with tamoxifen that then was changed to anastrozole. The patient did not tolerate the anastrozole she developed memory issues and pain in her muscles. She was than changed to letrazole and she continued to have pain and memory changes. She has had recent discussion with him and the aromatase inhibitors have been stopped and the consideration is to go back on the tamoxifen, poat this point she is decided not to take any She did have BRCA testing done which came back negative. Her pathology revealed multiple foci of invasive cancer, largest was 21 mm in great size. 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 The margins were uninvolved by invasive cancer or DCIS. 9 nodes were removed with one showing macro metastases along with micro-metastases. An Oncotype DX returned at 13. Tiffanie received external beam radiation to the whole breast and regional nodes including the supraclavicular fossa. She had a bilateral mammogram 08-17-23 BIRAD 2 nothing of concern was noted in either breast. This was personally reviewed and interpreted She is not complaining of any new lumps masses or nodules of concern in either breast. She has not complaining of any skin changes or nipple changes. note medical oncology 03-10-23 reviewed: She completed about 5 years of endocrine therapy in total in February 2023. Breast cancer next testing showed no benefit from extended endocrine therapy. She uses a compressive sleeve for her left upper extremity. Family history: Patient: Breast cancer brother: Lung cancer stage IIIA, smoker Hormonal history: Menarche: 14 Pregnancies: 2, 2 children, first one at 24, breast-fed: Negative Menopause: Perimenopausal at this time control pills: Negative Hormones: Negative patient is presently taking tamoxifen and being considered for anastrozole Surgical history: 1. Ovarian cyst 2. Left breast lumpectomy 3. Lopressor tachycardia core biopsy/benign 4. D&C Medical history: Negative Social history: Smoking: Negative Alcohol: Negative Drugs: Negative Constitutional: Hot flashes HEENT: Wears glasses Lungs: Negative Heart: Negative GI: Negative : Negative Musculoskeletal: Intermittent muscular discomfort Psychiatric: Negative Hematologic: Negative ALLERGIES: Penicillin Objective - Constitutional General appearance: Present: cooperative - EENT Eyes: Present: EOMI ENT: Present: hearing grossly normal - Neck Neck: Present: normal ROM - Respiratory Respiratory: bilateral: CTA - Cardiovascular Heart sounds: normal: S1, S2 - Integumentary Integumentary: Present: normal turgor - Musculoskeletal Musculoskeletal: Present: gait normal - Psychiatric Psychiatric: Present: A&O x's 3, appropriate affect, intact judgment & insight - Additional findings Additional findings: Breast Exam: Bra: 46C inspection: Well-healed scar left breast from prior lumpectomy, bilateral grade 2 ptosis Palpation: Right breast: Multi positional exam fibrocystic changes no dominant masses or nodules of concern Right axilla: No adenopathy of concern Left breast: Multi positional exam postsurgical and radiation changes no dominant masses or nodules of concern Left axilla: No adenopathy of concern Assessment and Plan Assessment: Impression: Stage IIB left breast invasive ductal carcinoma no evidence of recurrence, 2017 Fibrocystic breast changes bilateral mammogram benign BIRADS 2 this was done on 08-17-23 and personally reviewed At this time the patient is not taking any hormone therapy Plan: bilateral mammogram with examination If patient notes any changes in her breast will follow-up sooner CC: Dr. Meyer
[2023-11-11 15:40] VITALS: BP 103/68; PULSE 89; RESP 17; TEMP 98.2
== END ==
LOC: WWCWWP 15:20
PROVIDERS: ATTEND Surgery
DX: R92.8 Other abnormal and inconclusive findings on diagnostic imaging of breast (principal); N60.11 Diffuse cystic mastopathy of right breast; Z80.3 Family history of malignant neoplasm of breast; Z92.3 Personal history of irradiation; Z88.0 Allergy status to penicillin; Z85.3 Personal history of malignant neoplasm of breast; Z87.891 Personal history of nicotine dependence

== ENCOUNTER → 2024-08-21 | Outpatient (CLI) | payer OTHER | END | disposition home or self-care (01) | LOC: LABWHC1 10:43 | PROVIDERS: ATTEND Family Medicine | DX: Z53.9 Procedure and treatment not carried out, unspecified reason (principal) ==

== ENCOUNTER → 2024-08-21 | Outpatient (CLI) | payer OTHER ==
[2024-08-21 15:44] LABS: ALT 24 U/L (8-44); AST 21 U/L (13-35); Albumin 4.5 g/dL (3.8-4.9); Albumin/Globulin Ratio 2.25 Ratio (1.60-3.17); Alkaline Phosphatase 71 U/L (41-126); Anion Gap 10.70 mmol/L (4.00-12.00); BUN/Creat Ratio 19.86 Ratio (12.00-20.00); Blood Urea Nitrogen 13.9 mg/dL (9.0-27.0); Calcium 9.4 mg/dL (8.7-10.3); Carbon Dioxide 24.3 mmol/L (21.6-31.8); Chloride 107 mmol/L (96-109); Cholesterol 299.00 mg/dL (0.00-200.00); Globulin 2.0 g/dL (1.6-3.3); Glucose 104 mg/dL (70-110); HDL Cholesterol 51.30 mg/dL (40.00-60.00); LDL Cholesterol,Calculated 224.1 mg/dL (0.0-131.0); Potassium 4.5 mmol/L (3.5-5.5); Sodium 142 mmol/L (135-145); Total Protein 6.5 g/dL (6.2-8.2); Triglycerides 118.00 mg/dL (0.00-149.00); VLDL Calculation 23.60 mg/dL (5.00-40.00)
[2024-08-21 16:13] LABS: HCT 42.0 % (37.2-46.3); HGB 14.0 g/dL (12.0-15.0); MCH 30.6 pg (27.0-32.0); MCHC 33.3 g/dL (32.0-37.0); MCV 91.9 FL (80.0-97.0); NRBC Per 100 WBC 0 X 10*3/uL (0.00-0.01); Platelet Count 279 X 10*3/uL (140-440); RBC 4.57 X 10*6/uL (4.10-5.20); RDW 14.2 % (11.5-14.5); WBC 5.00 X 10*3/uL (4.50-10.00)
[2024-08-21 16:24] LABS: Bilirubin,Urine Negative (Negative); Blood,Urine Negative (Negative); Color,Urine Yellow (Yellow); Ketones,Urine Negative (Negative); Nitrite,Urine Negative (Negative); PH, Urine 5.0; Specific Gravity,Urine 1.017 (1.001-1.030); Urobilinogen,Urine 0.2 E.U./DL
[2024-08-21 16:31] LABS: Bacteria,Urine 1+ (None Seen)
== END | disposition home or self-care (01) ==
LOC: LABWHC1 10:47
PROVIDERS: ATTEND Family Medicine
DX: Z00.00 Encounter for general adult medical examination without abnormal findings (principal)
CPT/HCPCS: 36415; 80053; 80061; 81001; 82306; 83036; 84443; 85027

== ENCOUNTER → 2024-08-23 | Outpatient (CLI) | payer OTHER ==
--- NOTE | 2024-08-24 06:20 | MM ---
Reason for Exam: Screening (asymptomatic). Last screening mammogram was performed 12 month(s) ago. Patient History: Menarche at age 14. First Full-Term at age 24. Postmenopausal. Breast cancer, left, age 50. 07/08/2016, Lumpectomy on the Left side. 06/10/2017, Benign Core Biopsy on the right side. 07/08/2016, Malignant Core Biopsy on the left side. 05/22/2016, Malignant Core Biopsy on the left side. 2016, Radiation Therapy on the left side. Prior Study Comparison: 07/24/2021 Bilateral MG 3D screening mammo w/cad, [facility]. 08/10/2022 Bilateral MG 3D diag mammo w/cad [facility], [facility]. 08/17/2023 Bilateral MG 3D diag mammo w/cad [facility], [facility]. Tissue Density: The breasts are heterogeneously dense, which may obscure small masses. Findings: Analyzed By CAD. Multiple surgical clips posteriorly in the left breast upper aspect are redemonstrated. Mammotome biopsy clip in the right breast is again seen. There are benign-appearing round calcifications bilaterally redemonstrated. There is no suspicious group of microcalcifications or new suspicious mass in either breast. Overall Assessment: Benign, BI-RAD 2 Management: Screening Mammogram of both breasts in 1 year. . Patient should continue monthly self-breast exams. A clinical breast exam by your physician is recommended on an annual basis. This exam should not preclude additional follow-up of suspicious palpable abnormalities. Note on Lila scores and lifetime risk: 1. A Lila score greater than 3% is considered moderate risk. If this is the case, consider specialist referral to assess eligibility for a risk reducing agent. 2. If overall lifetime risk for the development of breast cancer is 20% or higher, the patient may qualify for future screening with alternating mammogram and breast MRI. [facility], , 08/24/2024 6:17 AM. Electronically signed and approved by: Cory Mcdonald M.D.
== END | disposition home or self-care (01) ==
LOC: RADMAMWWP 15:35
PROVIDERS: ATTEND Surgery
DX: Z12.31 Encounter for screening mammogram for malignant neoplasm of breast (principal); R92.333 Mammographic heterogeneous density, bilateral breasts; Z85.3 Personal history of malignant neoplasm of breast; Z78.0 Asymptomatic menopausal state
CPT/HCPCS: 77063; 77067

== ENCOUNTER → 2024-08-25 | Outpatient (CLI) | payer OTHER ==
[2024-08-25 11:44] VITALS: BP 120/60; PULSE 69; RESP 16; TEMP 97.8
--- NOTE | 2024-08-25 11:50 | P.PN ---
Subjective Progress Note Date: 08/25/24 Principal diagnosis: Stage IIB T2N1a left breast invasive ductal cancer 201608-25-24 Principal diagnosis: Stage IIB T2N1a left breast invasive ductal cancer 2016 Tiffanie is a 58 year old white female status post left breast lumpectomy with radiation therapy in 2016. The patient received radiation and hormonal therapy. She was initially treated with tamoxifen that then was changed to anastrozole. The patient did not tolerate the anastrozole she developed memory issues and pain in her muscles. She was than changed to letrazole and she continued to have pain and memory changes. She has had recent discussion with him and the aromatase inhibitors have been stopped and the consideration is to go back on the tamoxifen, poat this point she is decided not to take any She did have BRCA testing done which came back negative. Her pathology revealed multiple foci of invasive cancer, largest was 21 mm in great size. 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 The margins were uninvolved by invasive cancer or DCIS. 9 nodes were removed with one showing macro metastases along with micro-metastases. An Oncotype DX returned at 13. Tiffanie received external beam radiation to the whole breast and regional nodes including the supraclavicular fossa. She had a bilateral mammogram 08-23-24 BIRAD 2 nothing of concern was noted in either breast. This was personally reviewed and interpreted She is not complaining of any new lumps masses or nodules of concern in either breast. She has not complaining of any skin changes or nipple changes. She completed about 5 years of endocrine therapy in total in February 2023. Breast cancer next testing showed no benefit from extended endocrine therapy. She used a compressive sleeve for her left upper extremity which she is no longer using. Family history: Patient: Breast cancer brother: Lung cancer stage IIIA, smoker Hormonal history: Menarche: 14 Pregnancies: 2, 2 children, first one at 24, breast-fed: Negative Menopause: Perimenopausal at this time control pills: Negative Hormones: Negative patient is presently taking tamoxifen and being considered for anastrozole Surgical history: 1. Ovarian cyst 2. Left breast lumpectomy 3. Lopressor tachycardia core biopsy/benign 4. D&C Medical history: Negative Social history: Smoking: Negative Alcohol: Negative Drugs: Negative Constitutional: Hot flashes HEENT: Wears glasses Lungs: Negative Heart: Negative GI: Negative : Negative Musculoskeletal: Intermittent muscular discomfort Psychiatric: Negative Hematologic: Negative ALLERGIES: Penicillin Objective - Vital Signs Vital signs: Intake & Output 08/24/24 08/25/24 08/25/24 18:59 06:59 18:59 Weight 68.039 kg - Constitutional General appearance: Present: cooperative - EENT Eyes: Present: EOMI ENT: Present: hearing grossly normal - Neck Neck: Present: normal ROM - Respiratory Respiratory: bilateral: CTA - Cardiovascular Rhythm: regular Heart sounds: normal: S1, S2 - Integumentary Integumentary: Present: normal turgor - Musculoskeletal Musculoskeletal: Present: gait normal - Psychiatric Psychiatric: Present: A&O x's 3, appropriate affect, intact judgment & insight - Additional findings Additional findings: Breast Exam: Bra: 46C inspection: Well-healed scar left breast from prior lumpectomy, bilateral grade 2 ptosis Palpation: Right breast: Multi positional exam fibrocystic changes no dominant masses or nodules of concern Right axilla: No adenopathy of concern Left breast: Multi positional exam postsurgical and radiation changes no dominant masses or nodules of concern Left axilla: No adenopathy of concern Assessment and Plan Assessment: Impression: Stage IIB left breast invasive ductal carcinoma no evidence of recurrence, 2017 Fibrocystic breast changes bilateral mammogram benign BIRADS 2 this was done on 08-23-24 and personally reviewed At this time the patient is not taking any hormone therapy Plan: bilateral mammogram with examination If patient notes any changes in her breast will follow-up sooner CC: Dr. Meyer
== END ==
LOC: WWCWWP 11:25
PROVIDERS: ATTEND Surgery
DX: N60.12 Diffuse cystic mastopathy of left breast (principal); Z88.0 Allergy status to penicillin; Z87.891 Personal history of nicotine dependence; Z85.3 Personal history of malignant neoplasm of breast